=== PATIENT | female | born 1970 | race African-American/Black ===

== ENCOUNTER 2018-05-05 10:54 | Inpatient (IN) | payer MEDICARE, MEDICAID ==
[2018-05-05] MEDS ORDERED: Morphine 4 MG/ML VIAL ONE (11:53)
--- NOTE | 2018-05-05 13:13 | HP ---
PRIMARY CARE PHYSICIAN: Dr. Magalys Mcgovern. REASON FOR ADMISSION: Transfer from [facility] Emergency Room for small-bowel obstruction. HISTORY OF PRESENT ILLNESS: A 47-year-old female who has past medical history of ulcerative colitis required total colectomy in 2007. Patient has ileostomy in place. Patient was following chemist physical in [place], [place]. Patient is not on any specific treatment for ulcerative colitis anymore. Patient reports that for the last one week, she was experiencing burning and abdominal discomfort which was getting worse with food. Patient saw primary care physician 1 week ago and patient was given prescription for Nexium and Zofran that was not helping any symptoms and symptoms were getting worse. She was having more and more abdominal pain as well as nausea and she also had vomiting of clear liquid and food particle without any blood. She denies having bowel movement, but she has ileostomy and she was having ileostomy output daily basis which has not changed. She denies any abdominal distension. She denies any UTI symptoms. She denies any constipation, melena, hematochezia. She denies any fever or chills. She denies any hematemesis. This patient was evaluated at [facility] Emergency Room where she had routine blood test done which showed essentially normal CBC, BMP. Patient had a CT of the abdomen and pelvis which showed postoperative changes of total colectomy and ileostomy, large parastomal hernia containing several loops of ileum, high grade mechanical small-bowel obstruction with air fluid levels and dilated loops of ileum. Patient also has cholelithiasis without any cholecystitis. Patient had NG tube placed and subsequently, this patient was transferred to our hospital for further evaluation and treatment. From the emergency room, General Surgery was notified and they recommended to admit under General Medicine. We are admitting this patient for small-bowel obstruction. PAST MEDICAL HISTORY: Ulcerative colitis, gastroesophageal reflux disease, history of TIA in 2008, asthma. PAST SURGICAL HISTORY: Total colectomy, ileostomy, salpingo-oophorectomy, colon biopsy, cystoscopy, hysterectomy, tonsillectomy. PAST PSYCHIATRIC HISTORY: Reviewed and negative. SOCIAL HISTORY: Patient is . She lives at home with her . She drinks alcohol occasionally. She denies any smoking. She denies any other illicit drug abuse. FAMILY HISTORY: No strong family history of premature coronary artery disease, stroke or cancer. ALLERGIES: SULFA DRUGS and IODINE ADHESIVE. CURRENT HOME MEDICATIONS: Ventolin inhaler 2 puffs q.4 hourly p.r.n., Nexium 40 mg daily, Flonase nasal spray daily, Prilosec 20 mg daily, Zofran ODT q.8 hours p.r.n. EMERGENCY ROOM COURSE: Patient was given fentanyl 50 mcg at [place] [facility] [facility]. Patient is receiving IV fluid. Patient was given Ringer's lactate 1 liter and she was given total fentanyl 50 mcg 2 doses and Zofran 4 mg 1 dose. REVIEW OF SYSTEMS: The following complete review of systems was negative, unless otherwise mentioned in the HPI or below: Constitutional: Weight loss or gain, ability to conduct usual activities. Skin: Rash, itching. Eyes: Double vision, pain. ENT/Mouth: Nose bleeding, neck stiffness, pain, tenderness. Cardiovascular: Palpitations, dyspnea on exertion, orthopnea. Respiratory: Shortness of breath, wheezing, cough, hemoptysis, fever, or night sweats. Gastrointestinal: Poor appetite, abdominal pain, heartburn, nausea, vomiting, constipation, or diarrhea. Genitourinary: Urgency, frequency, dysuria, nocturia. Musculoskeletal: Pain, swelling. Neurologic/Psychiatric: Anxiety, depression. Allergy/Immunologic: Skin rash, bleeding tendency. Please see my HPI for pertinent positive and negative. All other review of system reviewed and negative except as mentioned in the HPI. PHYSICAL EXAMINATION: VITAL SIGNS: Currently, blood pressure 151/99, pulse 95, respiratory rate 18, temperature 98.4, saturation 100% on room air, weight 72.1 kilograms. GENERAL: Patient is currently alert, awake, mild distress due to abdominal pain. HEENT: Head, normocephalic and atraumatic. Eyes: Pupils are round, reactive to light. Extraocular muscle intact. ENT: Somewhat dry appearing mucous membrane, no oral lesions. An NG tube in place. NECK: Supple, no JVD, no thyromegaly, no carotid bruit. LUNGS: Clear to auscultation without any rhonchi or rales. CARDIAC: S1, S2 regular without any murmur. ABDOMEN: Patient does have diffuse tenderness, unable to hear any bowel sound. No distention. Ileostomy in the right lower quadrant. Surgical scar noted. No peritoneal sign, no suprapubic discomfort. BACK: Unremarkable, no CVA tenderness. EXTREMITIES: Upper extremity, passive movement of all joints are normal. Lower extremity, no edema. Good distal pulsation. SKIN: No skin rash. HEMATOLOGIC: No lymphadenopathy. PSYCHIATRIC: Normal affect. SIGNIFICANT LABORATORY DATA: 1. nuclear monitoring technician in the emergency room showing sinus rhythm. 2. Blood test done at [facility] Emergency Room showing urinalysis , leukocyte esterase trace, wbc's 329 and bacteria, moderate. 3. Lactic acid 1.2. 4. BMP: Sodium 142, potassium 4.8, chloride 111, carbon dioxide 21, BUN 11, creatinine 0.97, glucose 102, calcium 10.2. 5. LFT: AST 25, ALT 18, alkaline phosphatase is 100, protein 8.6, albumin 4.7 , lipase 33. 6. CBC: WBC 6.7, hemoglobin 12.6, platelet 231. 7. 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 ASSESSMENT AND PLAN: 1. Acute small-bowel obstruction. Patient's symptomatology is going on for the last one week, she has a radiologically proven high-grade mechanical small- bowel obstruction with air fluid level. Patient does have total colectomy and ileostomy. General Surgery was notified from emergency room. We will consult them. We will treat conservatively with NG tube low intermittent suction, n.p.o. We will control her pain with morphine 4 mg every 3 hourly. We will continue Protonix 40 mg IV b.i.d. We will monitor clinically and vitals. We will continue with IV fluid. Further decision will defer to general surgeon. 2. History of ileostomy. History of ulcerative colitis with total colectomy and ileostomy with parastromal hernia. General Surgery is consulted. At this point, the patient is not on any specific treatment for ulcerative colitis. If needed, we will consider Gastroenterology consultation. 3. Cholelithiasis without cholecystitis without any Cooney sign. Patient has normal LFT. Does not need any further treatment for cholelithiasis. 4. Gastroesophageal reflux disease. We will continue Protonix 40 mg IV b.i.d. 5. Asthma, currently well controlled. We will continue with Ventolin nebulization q.6 hours p.r.n. 6. Deep venous thrombosis prophylaxis. Lovenox 40 mg subcu daily. 7. Gastrointestinal prophylaxis. Protonix 40 mg IV b.i.d. 8. Code status: The patient is FULL CODE. Patient's is surrogate decision maker. Disposition plan based on clinical course. We are expecting patient's stay in hospital more than 2 midnights. Plan of care discussed with the patient and her . Asymptomatic urinary tract infection. We will send urine culture and tomorrow, we will repeat labs including CBC, CMP, lactate, magnesium and phosphorus. MTDD
[2018-05-05] MEDS ORDERED: Cepastat Lozenges 1 LOZ PO PRN (14:11)
[2018-05-05] MEDS ORDERED: Artificial Tears 18 DROP/0.9 ML EA EYE PRN (14:11)
[2018-05-05] MEDS ORDERED: Sodium Chloride 0.65% Nasal 44 ML BOT EA NARE PRN (14:11)
[2018-05-05] MEDS ORDERED: Eucerin (Mineral Oil/Petrolatum,White) 30 gm Jar TOP PRN (14:11)
[2018-05-05] MEDS ORDERED: Labetalol HCl 100 MG/20 ML VIAL SLOW IVP PRN (14:11)
[2018-05-05] MEDS ORDERED: Albuterol Sulfate 2.5 mg/3 ml Neb NEB PRN (14:11)
[2018-05-05] MEDS ORDERED: Acetaminophen 650 MG Suppository PR PRN (14:11)
[2018-05-05] MEDS ORDERED: hydrALAZINE 20 MG/ML VIAL SLOW IVP PRN (14:11)
[2018-05-05] MEDS: Morphine 4 MG/ML VIAL SLOW IVP PRN ×3 (14:24→22:18)
[2018-05-05] MEDS: D5 0.9% NS w/ 20 mEq KCl 1,000 ML IV SCH ×2 (14:25→19:45)
[2018-05-05] MEDS: Ondansetron PF 4 MG/2 ML Vial IVP PRN ×2 (16:47→22:19)
[2018-05-05] MEDS: Pantoprazole 40 MG VIAL IVP SCH (19:45)
--- NOTE | 2018-05-05 21:05 | CON ---
DATE OF CONSULTATION: 05/05/2018 REQUESTING PHYSICIAN: Dr. Kelly. HISTORY OF PRESENT ILLNESS: This is a 47-year-old woman who is status post total co lectomy in 2007 for chronic ulcerative colitis. The patient was seen at [facility] in [place], [place] and transferred to [facility] in [place], [place]. She presented complaining of 1 week history of recurrent nonbilious emesis associated with some crampy abdominal pain. Her symptoms seem to be exacerbated after eating. No specific foods implicated. Her ileostomy has been productive and no ch lawson in output or character. CT scan of the abdomen and pelvis was obtained in [place] and was repor tedly suggestive of acute small-bowel obstruction for which patient has been referred to the surgical service. At the time of my evaluation, patient denies any abdominal distention. She now rates her pain at 3/10. She has not had any emesis today. She empties ileostomy multiple times a day. She mederos s had no fevers or chills. She was recently treated for gastroesophageal reflux disease. She did mederos ve a history of bleeding peptic ulcerative disease many years ago. PAST MEDICAL HISTORY: Significant for gastroesophageal reflux disease, ulcerative colitis, asthma an d transient ischemic attacks. SURGICAL HISTORY: Pertinent for total colectomy with ileostomy, total abdominal hysterectomy with bi lateral salpingo-oophorectomy. She has also had a childhood tonsillectomy, cystoscopy and placement of inferior vena cava filter. SOCIAL HISTORY: Patient is and lives at home with her . Admits to occasional intake of ethanol in moderate amounts. She denies any cigarette smoking or any illicit drug abuse. PREHOSPITALIZATION MEDICATIONS: Includes Nexium 40 mg p.o. daily, Prilosec 20 mg p.o. daily, Ventoli n inhaler 2 puffs q.4 p.r.n., Flonase nasal spray, and Zofran p.r.n. ALLERGIES: SULFA DRUGS and IODINE. REVIEW OF SYSTEMS: A 10-point review of systems essentially unremarkable except for as stated in pas t medical history and chief complaint. PHYSICAL EXAMINATION: GENERAL: This reveals a 47-year-old normally developed woman who is otherwise coherent and interacti ve and appears stated age. The patient is alert and oriented x3. She appears to be in no acute dist ress at the time of my evaluation. VITAL SIGNS: Includes blood pressure 115/75, pulse is 74, respiratory rate is 18, temperature is 97. 9 degrees Fahrenheit and oxygen saturation is 96% on room air. HEENT: Reveals normocephalic and atraumatic. Pupils are equal, round, reactive to light and accommo dation. Extraocular muscles are intact bilaterally. No sclerae icterus is present. Oral mucosa is pink and moist. No lesions are noted. NECK: Supple. No palpable lymphadenopathy or thyromegaly present. HEART: Reveals regular rate and rhythm, no murmurs or gallops auscultated. LUNGS: Clear to auscultation bilaterally. Breathing is regular and unlabored. ABDOMEN: Soft and nondistended. She has a nasogastric tube in place which returns scant amount of n onbilious gastric effluent. She has a healed incisional scar. An ileostomy is present which is viab le and productive of liquid stool and some gas. There are palpable loops of small bowel subcutaneous ly around the ileostomy. No significant tenderness associated with the parastomal defect. Clearly, patient has no gross rebound tenderness present. Liver and spleen nonpalpable below costal margin. Bowel sounds in all four quadrants appear normoactive. EXTREMITIES: Reveals 2+ radial and pedal pulses bilaterally. No ankle edema is present. NEUROLOGIC: Examination reveals no focal deficits present. LABORATORY DATA AND IMAGING DATA: Laboratory studies from [place] includes CBC with 6,700 white bloo d cells, hemoglobin and hematocrit 12.6 and 38.1 respectively. Platelet count is 231,000. Metabolic profile reveals sodium 142, potassium is 4.1, chloride is 111, bicarbonate is 21, BUN 11, creatinine 0.97, glucose is 102, lactic acid is 1.2, AST and ALT normal at 25 and 18 respectively. Total bilir ubin is also normal at 0.5. Serum lipase normal at 33. Albumin is also normal at 4.7. I personally reviewed the accompanying CT scan of the abdomen and pelvis from [place]. Scan is without oral cont rast. It does reveal multiple distended loops of distal small bowel. There is parastomal hernia, wh ich contains small bowel. The small bowel; however, within the hernia contains fluid and air. Altho ugh the report suggests transition zone, I was not able to appreciate this on my evaluation given the re is no oral contrast with the study. Cholelithiasis is noted without any evidence of acute inflamm ation. IMPRESSION: 1. Abdominal pain with nausea and vomiting, likely secondary to gastric outlet obstruction and less likely secondary to acute small-bowel obstruction given the patient has normal ileostomy function. 2. Large parastomal hernia without any evidence of bowel obstruction. 3. Cholelithiasis. No clinical evidence of acute cholecystitis. 4. History of ulcerative colitis, status post total colectomy. PLAN: 1. Initiate upper GI studies with small bowel follow through. 2. Continue with nasogastric tube decompression. 3. There is no acute surgical indication for this patient at this time; however, if gastric outlet o bstruction is established by radiographic studies, we will give consideration to consulting Gastroent erology for upper endoscopy. Nevertheless, of small-bowel obstruction is established, we will then consider exploratory laparotomy to resolve the small-bowel obstruction, at which time we will also consider a cholecystectomy. Abov e findings and plan have been discussed with the patient and her at bedside. We will continu e with proton pump inhibitor given this patient's extensive history of previous bleeding of peptic ul cerative disease. She is at risk for recurrence and stricture. Thank you again, Dr. Kelly, for allowing me the opportunity to participate in the care of this [place] ent.
--- NOTE | 2018-05-05 21:28 | RAD ---
SMALL BOWEL SERIES: 05/05/18 HISTORY: 47-year-old female. History of small bowel obstruction. Plant And Maintenance Technician film, 15 minute, one hour, and four hour images are available for interpretation. Gastrografin contrast media was given per NG tube. The stomach is somewhat dilated. At the one hour time interval, essentially no contrast had passed out of the stomach. At the 4 hour study, only a small amount of v ofelia dilute contrast media has passed into nondilated small bowel. There is some contrast noted in the right upper collecting system and also in the bladder. IVC filter is in place. IMPRESSION: After four hours there is still dense contrast within the stomach with only a very tiny amount of dil lower elwha contrast in nondilated small bowel. There appears to be some contrast within the right upper shell ecting system and bladder. A followup KUB in the morning is recommended. POS: [facility]
[2018-05-06] MEDS: Morphine 4 MG/ML VIAL SLOW IVP PRN ×6 (01:12→22:47)
[2018-05-06] MEDS: Ondansetron PF 4 MG/2 ML Vial IVP PRN ×2 (03:53→20:06)
[2018-05-06 05:22] LABS: Lactic Acid 0.9 mmol/L (0.5-2.2)
[2018-05-06 05:27] LABS: ALT (SGPT) 10 U/L (8-55); AST (SGOT) 17 U/L (5-34); Albumin 3.8 g/dL (3.5-5.0); Alkaline Phosphatase 81 U/L (40-150); Anion Gap 10 mmol/L (10-20); BUN (Urea Nitrogen) 5 mg/dL (7.0-18.7); Bilirubin, Total 0.7 mg/dL (0.2-1.2); CRP (Inflammatory) 0.73 mg/dL (= or < 0.5); Calc. Creatinine Clearance 93 mL/min (70-130); Carbon Dioxide 21 mmol/L (22-29); Chloride 112 mmol/L (98-107); Estimated GFR-MDRD 87; Globulin 3.2 g/dL (2.4-3.5); Glucose 135 mg/dL (70-105); Phosphorus 3.8 mg/dL (2.3-4.7); Potassium 4.1 mmol/L (3.5-5.1); Sodium 139 mmol/L (136-145)
[2018-05-06 06:05] LABS: #Lymphocytes 1.3 thou/uL (1.20-3.40); #Monocytes 0.4 thou/uL (0.11-0.59); %Basophils 0.7 % (0.0-1.0); %Eosinophils 0.2 % (0.0-10.0); %Lymphocytes 22.5 % (21.0-51.0); %Monocytes 7.3 % (0.0-10.0); %Neutrophils 69.4 % (42.0-75.0); Hemoglobin 11.9 g/dL (12.0-16.0); MDiff Complete? YES; Mean Corpuscular HGB CONC 32.8 g/dL (32.0-36.0); Mean Corpuscular Hemoglobin 30.4 pg (27.0-31.0); Mean Corpuscular Volume 92.6 fL (78.0-98.0); Mean Platelet Volume 8.4 fL (7.4-10.4); Platelet Count 230 thou/uL (130-400); RBC Distribution Width 12.1 % (11.5-14.5); RBC Morphology Normal; Red Blood Cell (RBC) Count 3.93 mill/uL (4.20-5.40); White Blood Cell (WBC) Count 5.8 thou/uL (4.8-10.8)
[2018-05-06] MEDS: D5 0.9% NS w/ 20 mEq KCl 1,000 ML IV SCH ×3 (06:09→23:22)
[2018-05-06] MEDS: Pantoprazole 40 MG VIAL IVP SCH ×2 (07:51→20:06)
[2018-05-06] MEDS: Enoxaparin Sodium 40 MG/0.4 ML SYRINGE SC SCH (07:51)
--- NOTE | 2018-05-06 09:50 | RAD ---
SUPINE ABDOMEN: Date: 05/06/18 PROVIDED CLINICAL HISTORY: Small bowel obstruction. FINDINGS: Comparison of small bowel follow-through dated 05/05/18. No contrast material is present within the regional bowel. The bowel gas pattern is nonspecific. IVC filter overlies the lumbar spine. Enteric catheter overlies the left mid abdomen. Calcifications over lying the right renal shadow may reflect material within bowel or nephrolithiasis. The supine nature of the study is not sensitive for detection of pneumoperitoneum. IMPRESSION: Nonspecific bowel gas pattern. POS: [facility]
[2018-05-06] MEDS ORDERED: Lidocaine 1% PF 5 ML VIAL ONE (10:01)
[2018-05-06] MEDS ORDERED: PHENYLEPHRINE-NS 100 MCG/ML 10 ML SYRINGE ONE (10:01)
[2018-05-06] MEDS ORDERED: PROPOFOL 200 MG/20 ML VIAL ONE (10:01)
[2018-05-06] MEDS ORDERED: Ondansetron PF 4 MG/2 ML Vial ONE (10:01)
[2018-05-06] MEDS ORDERED: Succinylcholine Chloride 20 MG/ML 10 ml SYRINGE FS ONE (10:01)
--- NOTE | 2018-05-06 10:21 | PDOC.PN ---
- Subjective Encounter Start Date: 05/06/18 Encounter Start Time: 07:50 -: old records requested/rev Patient seen and examined. last night she had vomiting, has some vague abdominal pain - Objective Resuscitation Status: Resuscitation Status FULL:Full Resuscitation MAR Reviewed: Yes Vital Signs & Weight: Vital Signs (12 hours) Temp Pulse Resp BP Pulse Ox 05/06/18 07:09 98.1 F 69 16 134/82 96 05/06/18 04:23 97 05/06/18 04:22 98.4 F 68 18 146/90 H 96 05/05/18 23:59 98.1 F 64 18 151/92 H 97 Weight Weight 158 lb 11.725 oz I&O: 05/05/18 05/06/18 05/07/18 06:59 06:59 06:59 Intake Total 2000 Output Total 1730 Balance 270 Result Diagrams: 05/06/18 04:40 05/06/18 04:40 Radiology Reviewed by me: Yes (small bowl xray and xray abdomen reviewed) Phys Exam - Physical Examination Constitutional: NAD HEENT: PERRLA, moist MMs, sclera anicteric NG tube with LIS Neck: no JVD, supple Respiratory: no wheezing, no rales, no rhonchi Cardiovascular: RRR, no significant murmur, no rub Gastrointestinal: soft, no distention Ileostomy+ Musculoskeletal: no edema, pulses present Neurological: non-focal, normal sensation, moves all 4 limbs Psychiatric: normal affect, A&O x 3 Skin: no rash, normal turgor Dx/Plan (1) SBO (small bowel obstruction) Code(s): K56.609 - UNSP INTESTNL OBST, UNSP TO PARTIAL VERSUS COMPLETE OBST Status: Acute (2) Asymptomatic bacteriuria Code(s): R82.71 - BACTERIURIA Status: Acute (3) Anemia, normocytic normochromic Code(s): D64.9 - ANEMIA, UNSPECIFIED Status: Chronic (4) Asthma Code(s): J45.909 - UNSPECIFIED ASTHMA, UNCOMPLICATED Status: Chronic (5) H/O total colectomy Code(s): Z90.49 - ACQUIRED ABSENCE OF OTHER SPECIFIED PARTS OF DIGESTIVE TRACT Status: Chronic (6) H/O ulcerative colitis Code(s): Z87.19 - PERSONAL HISTORY OF OTHER DISEASES OF THE DIGESTIVE SYSTEM Status: Chronic (7) Ileostomy status Code(s): Z93.2 - ILEOSTOMY STATUS Status: Chronic - Plan cont current plan of care, plan discussed w/ family * General surgery recommendation noted * GI consulted * continue NG tube with LIS * discussed with * continue IVF * medication reviewed as below * symptomatic treatment. Review of Systems - Review of Systems Eyes: negative: Pain, Vision Change, Conjunctivae Inflammation, Eyelid Inflammation, Redness, Other ENT: negative: Ear Pain, Ear Discharge, Nose Pain, Nose Discharge, Nose Congestion, Mouth Pain, Mouth Swelling, Throat Pain, Throat Swelling, Other Respiratory: negative: Cough, Dry, Shortness of Breath, Hemoptysis, SOB with Excertion, Pleuritic Pain, Sputum, Wheezing Cardiovascular: negative: chest pain, palpitations, orthopnea, paroxysmal nocturnal dyspnea, edema, light headedness, other Gastrointestinal: Nausea, Vomiting, Abdominal Pain. negative: Diarrhea, Constipation, Melena, Hematochezia, Other Genitourinary: negative: Dysuria, Frequency, Incontinence, Hematuria, Retention , Other Musculoskeletal: negative: Neck Pain, Shoulder Pain, Arm Pain, Back Pain, Hand Pain, Leg Pain, Foot Pain, Other Skin: negative: Rash, Lesions, Luis, Bruising, Other - Medications/Allergies Allergies/Adverse Reactions: Allergies Allergy/AdvReac Type Severity Reaction Status Date / Time adhesive tape Allergy Verified 05/05/18 15:07 iodine Allergy Verified 05/05/18 15:07 Sulfa (Sulfonamide Allergy Verified 05/05/18 15:07 Antibiotics) Medications: Current Medications Acetaminophen (Tylenol) 650 mg MO Q4H PRN PRN Reason: Headache/Fever/Mild Pain (1-3) Albuterol Sulfate (Ventolin) 2.5 mg NEB [id number] PRN PRN Reason: Wheezing Artificial Tears (Tears Naturale) 2 drop EA EYE PRN PRN PRN Reason: Dry Eyes Enoxaparin Sodium (Lovenox) 40 mg SC 0900 [facility] Last Admin: 05/06/18 07:51 Dose: 40 mg Hydralazine HCl (Apresoline) 10 mg SLOW IVP Q4H PRN PRN Reason: SBP Greater Than 170 Potassium Chloride/Dextrose/Sod Cl (D5 0.9% Ns W/ 20 Meq Kcl) 1,000 mls @ 125 mls/hr IV .Q8H ROSMERY Last Admin: 05/06/18 06:09 Dose: 1,000 mls Labetalol HCl (Normodyne) 20 mg SLOW IVP Q4H PRN PRN Reason: SBP Greater Than 170 Mineral Oil/White Petrolatum (Eucerin Cream) 0 gm TOP BIDPRN PRN PRN Reason: Dry Skin Mometasone Furoate/Formoterol Fumar (Dulera 200 Mcg/5 Mcg Inhaler) 2 puff INH BID-RT [facility] Morphine Sulfate (Morphine) 4 mg SLOW IVP Q3H PRN PRN Reason: Pain Last Admin: 05/06/18 07:51 Dose: 4 mg Ondansetron HCl (Zofran) 4 mg IVP Q6H PRN PRN Reason: Nausea/Vomiting Last Admin: 05/06/18 03:53 Dose: 4 mg Pantoprazole Sodium (Protonix) 40 mg IVP Q12HR [facility] Last Admin: 05/06/18 07:51 Dose: 40 mg Sodium Chloride ([place] Nasal [place] 0.65%) 0 ml EA NARE QIDPRN PRN PRN Reason: Nasal Congestion Throat Lozenges (Cepastat Lozenges) 1 rambo PO Q2H PRN PRN Reason: Sore Throat
[2018-05-06] MEDS ORDERED: cefTRIAXone\\ROCEPHIN 1 GM in Sodium Chloride 0.9% 100 ML IVPB SCH (14:00)
--- NOTE | 2018-05-06 14:00 | PRG ---
DATE OF SERVICE: 05/06/2018 SUBJECTIVE: Idalia Bro is a 47-year-old female that the surgical team is seeing in consultation f or a possible small-bowel obstruction. The patient has a history of a colectomy in 2007 with a histo ry of chronic ulcerative colitis. She underwent a small bowel follow through yesterday evening. The re were no acute overnight events. Upon our evaluation this morning, the patient states that her abd ominal pain has been well controlled. She denies any nausea or vomiting. OBJECTIVE: VITAL SIGNS: Temperature 98.1, pulse 69, respirations 16, O2 sat 96% on room air, blood pressure 134 /82. GENERAL: Well-developed female in no acute distress, resting in bed. NG tube is in place, but clamp ed. PULMONARY: Normal work of breathing. Symmetric rise. CARDIOVASCULAR: Regular rate and rhythm. GASTROINTESTINAL: Abdomen is soft, nontender, nondistended. Colostomy in place. NEUROLOGIC: No focal deficit is noted. LABORATORY FINDINGS: WBC 5.8, hemoglobin 11.9, hematocrit 36.4, platelet count 230. Sodium 139, pot assium 4.1, chloride 112, carbon dioxide 21, BUN 5, creatinine 0.5, glucose 135. RADIOGRAPHIC FINDINGS: Small bowel follow through on 05/05/2018 was read by Radiology after 4 hours with only minimal contrast moving from the stomach to the nondilated small bowel. KUB this morning w as read as demonstrating a nonspecific bowel gas pattern. ASSESSMENT AND PLAN: 1. Abdominal pain, nausea, and vomiting. 2. Possible gastric outlet obstruction. PLAN: Dr. Bah has discussed this case with Dr. Sellers from Gastroenterology. Findings from small b owel follow through were consistent with likely gastric outlet obstruction. Patient's NG tube should be placed back on low intermittent suction to prevent further nausea or vomiting. Continue n.p.o. s tatus. Plan of care was discussed with the patient and family at bedside and all questions were answered at the time of this dictation. Patient was seen and evaluated with Dr. Bah.
--- NOTE | 2018-05-06 15:16 | CON ---
DATE OF CONSULTATION: 05/06/2018 CHIEF COMPLAINT: Abdominal pain and nausea and vomiting. HISTORY OF PRESENT ILLNESS: Ms. Bro is a 47-year-old woman who developed epigastric burning tristen n about a week ago. Yesterday, she noted swelling around her colostomy site and she went to the [facility] room by ambulance to further evaluate that. She had a CT scan without contrast performed in [facility] ER at [facility] in [place] and then she was transferred here for further care. She then [facility] having nausea and vomiting. She was evaluated by Dr. Bah and a contrast upper GI study was ord ered; however, the stomach did not empty the Gastrografin consistent with gastric outlet obstruction. She has had some bloody streaks with her emesis. She has had continued output from her colostomy, which she reports is at her baseline functioning. She was diagnosed with chronic ulcerative colitis back in 2003. Her disease was refractory to steroi ds and Imuran. Remicade therapy was considered; however, due to the severity of her disease, she ult imately underwent colectomy in 2007. She does report that at some point in 2007, she had a gastric u lcer. She did have ileoscopy and proctoscopy by Dr. 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 She has not returned for followup since then. 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 King in [place] and just had that packed. She has not been seen by our practice since 2010. PAST MEDICAL HISTORY: Ulcerative colitis, gastroesophageal reflux disease, asthma, TIA. Review of [facility] past records indicate HIV infection; however, she did not mention this on extensive discussion of her past medical history and I will ask her about that again. PAST SURGICAL HISTORY: Subtotal colectomy with ileostomy, total hysterectomy, tubal ligation, tonsil lectomy. FAMILY HISTORY: She reports that her sister had ulcerative colitis and of colon cancer related to the ulcerative colitis last year. SOCIAL HISTORY: No alcohol, tobacco or drugs. ALLERGIES: SULFA, IODINE CONTRAST, ORANGES. MEDICATIONS: Prior to admission, Ventolin inhaler, Flonase nasal spray. Over the last week, she has taken either Nexium or Prilosec and Zofran. REVIEW OF SYSTEMS: She has had some acid reflux symptoms around once every couple of weeks and occas ionally, she takes Tums for that. PHYSICAL EXAMINATION: VITAL SIGNS: Temperature 98.0, pulse 64, blood pressure 125/81. GENERAL: She is in no acute distress. She is alert and oriented x3. HEENT: Eyes have no scleral icterus. Oropharynx is clear, without lesions. [facility] NECK: She has no cervical or supraclavicular lymphadenopathy. LUNGS: Clear to auscultation bilaterally. HEART: Regular rate and rhythm without murmur. ABDOMEN: Soft, nontender, nondistended. Bowel sounds are present. She has ileostomy in the right a bdomen. EXTREMITIES: No lower extremity edema. NEUROLOGIC: Cranial nerves are grossly intact. LABORATORY DATA: White blood cell count 5.8, hemoglobin 11.9, platelets 230. Creatinine 0.85, bilir ubin 0.7, AST 17, ALT 10, alkaline phosphatase 81. C-reactive protein 0.73, albumin 3.8. IMPRESSION: 1. Possible gastric outlet obstruction. She does have some blood in the NG tube, which could be mec hanical from the NG tube. Rule out peptic ulcer causing gastric outlet obstruction. 2. History of chronic ulcerative colitis. She does have a rectal stump left following subtotal clementina ctomy. She does need to undergo surveillance endoscopy for that area for cancer surveillance. Her s ister of colon cancer related to ulcerative colitis. She has had some occasional discharge from the rectum, but no bleeding. 3. Parastomal hernia. 4. History of human immunodeficiency virus. She states that she was diagnosed with human immunodefi ciency virus previously, but follow up labs by Dr. Smith in [place] showed that she no longer had it or was not infected with that. RECOMMENDATIONS: 1. Plan upper endoscopy today to rule out a gastric ulcer or gastric outlet obstruction. 2. Plan ileoscopy and proctoscopy as well with biopsies of the rectal mucosa. 3. Recheck HIV status.
[2018-05-06] MEDS ORDERED: Fentanyl 100 MCG/2 ML VIAL ONE (15:25)
[2018-05-06] MEDS ORDERED: Promethazine HCl 25 MG/ML VIAL IM PRN (16:13)
[2018-05-06] MEDS ORDERED: Promethazine HCl 25 MG/ML VIAL SLOW IVP PRN (16:13)
[2018-05-06] MEDS ORDERED: Ondansetron HCl/PF 4 MG/2 ML Vial IVP PRN (16:13)
--- NOTE | 2018-05-06 16:58 | OP ---
DATE OF PROCEDURE: 05/06/2018 PROCEDURES: Esophagogastroduodenoscopy and push enteroscopy with biopsy and ileoscopy and proctoscop y with biopsy. PREOPERATIVE DIAGNOSES: Nausea and vomiting and epigastric pain and suspected gastric outlet obstruc tion by imaging. Also chronic ulcerative colitis, status post subtotal colectomy. PROCEDURE IN DETAIL: Informed consent was obtained. The endoscope was advanced easily to the second portion of the duodenum and retroflexion was performed in the stomach. The esophagus was normal. T he GE junction was normal. The stomach mucosa overall appeared normal except for areas of suction tr auma in the proximal body. Biopsies were obtained to rule out other causes of gastritis and rule out H. pylori. The pylorus was normal. The first and second portions of the duodenum were normal. Duo denal biopsies were taken to rule out celiac disease. The scope was withdrawn and a colonoscope was then used to advance all the way down to the proximal jejunum. The mucosa of the proximal jejunum an d third and fourth portions of the duodenum was normal. The air was suctioned from the stomach. The endoscope was then advanced at least 30 cm through the ileostomy into the terminal ileum. The mucos a of the ileum was normal. The patient was turned around. Rectal exam reveals a short rectal stump. The endoscope was advanced to the rectum. The rectal mucosa was inflamed and erythematous, slightl y nodular and friable. Biopsies were obtained to rule out dysplasia. IMPRESSION: 1. Nasogastric suction trauma in the proximal body of the stomach. Biopsies obtained. 2. Otherwise normal push enteroscopy to the proximal jejunum. Biopsies of the duodenum were obtaine d. 3. Normal ileal colonoscopy through the ileostomy. 4. Diffuse friable erythematous irregular mucosa in the rectal stump. Biopsies obtained. RECOMMENDATIONS: 1. Await histopathology. 2. If the biopsies showed no dysplasia, then [place] suppositories could be considered for the chroni c proctitis. 3. Clear liquid diet. 4. Await HIV labs. It does appear that at least in 2016, at that time she was under the name of Thania Kumar, she had a positive viral load. 5. Timing of surveillance proctoscopy based on histopathology.
[2018-05-06 19:33] LABS: HIV 1/2 INDEX 464.36 S/CO (<1.00)
[2018-05-06 19:35] LABS: HIV (1/2) Antibody/Antigen Reflxed Confirmation (NonReactive)
[2018-05-06] MEDS: Mometasone/Formoterol 120 PUFF INHALER INH SCH (19:47)
[2018-05-07] MEDS: D5 0.9% NS w/ 20 mEq KCl 1,000 ML IV SCH (06:37)
[2018-05-07] MEDS: Mometasone/Formoterol 120 PUFF INHALER INH SCH ×2 (07:15→19:09)
[2018-05-07] MEDS: Enoxaparin Sodium 40 MG/0.4 ML SYRINGE SC SCH (08:26)
[2018-05-07] MEDS: Pantoprazole 40 MG VIAL IVP SCH (08:27)
[2018-05-07] MEDS: Morphine 4 MG/ML VIAL SLOW IVP PRN (08:27)
[2018-05-07] MEDS ORDERED: D5 0.9% NS w/ 20 mEq KCl 1,000 ML IV SCH (09:30)
--- NOTE | 2018-05-07 10:02 | PDOC.PN ---
- Subjective Encounter Start Date: 05/07/18 Encounter Start Time: 08:40 Patient seen and examined. No new complaints. No overnight events she has allergic reaction with rocephin and c/o lip swelling - Objective Resuscitation Status: Resuscitation Status FULL:Full Resuscitation MAR Reviewed: Yes Vital Signs & Weight: Vital Signs (12 hours) Temp Pulse Resp BP Pulse Ox 05/07/18 08:24 98.5 F 78 15 127/79 98 05/07/18 07:15 79 16 98 05/07/18 04:00 98.1 F 63 16 134/83 96 05/06/18 23:53 98.5 F 75 16 117/77 95 Weight Weight 158 lb 11.725 oz I&O: 05/06/18 05/07/18 05/08/18 06:59 06:59 06:59 Intake Total 1999 1810 Output Total 1730 150 Balance 270 1660 Result Diagrams: 05/06/18 04:40 05/06/18 04:40 Phys Exam - Physical Examination Constitutional: NAD HEENT: PERRLA, moist MMs, sclera anicteric Neck: no JVD, supple Respiratory: no wheezing, no rales, no rhonchi Cardiovascular: RRR, no significant murmur, no rub Gastrointestinal: soft, non-tender, no distention, positive bowel sounds iliostomy+ Musculoskeletal: no edema, pulses present Neurological: non-focal, normal sensation, moves all 4 limbs Lymphatic: no nodes Psychiatric: normal affect, A&O x 3 Skin: no rash, normal turgor Dx/Plan (1) SBO (small bowel obstruction) Code(s): K56.609 - UNSP INTESTNL OBST, UNSP TO PARTIAL VERSUS COMPLETE OBST Status: Acute (2) Asymptomatic bacteriuria Code(s): R82.71 - BACTERIURIA Status: Acute (3) Anemia, normocytic normochromic Code(s): D64.9 - ANEMIA, UNSPECIFIED Status: Chronic (4) Asthma Code(s): J45.909 - UNSPECIFIED ASTHMA, UNCOMPLICATED Status: Chronic (5) H/O total colectomy Code(s): Z90.49 - ACQUIRED ABSENCE OF OTHER SPECIFIED PARTS OF DIGESTIVE TRACT Status: Chronic (6) H/O ulcerative colitis Code(s): Z87.19 - PERSONAL HISTORY OF OTHER DISEASES OF THE DIGESTIVE SYSTEM Status: Chronic (7) Ileostomy status Code(s): Z93.2 - ILEOSTOMY STATUS Status: Chronic (8) HIV (human immunodeficiency virus infection) Status: Acute - Plan cont current plan of care, plan discussed w/ family, continue antibiotics * DC Rocephin and start macrobid * medication reviewed as below * symptomatic treatment * diet advancement as per GI * ambulate as tolerated * she has positive HIV but as per her previous record she was positive in past, though pt does not accept. Review of Systems - Review of Systems ENT: negative: Ear Pain, Ear Discharge, Nose Pain, Nose Discharge, Nose Congestion, Mouth Pain, Mouth Swelling, Throat Pain, Throat Swelling, Other Respiratory: negative: Cough, Dry, Shortness of Breath, Hemoptysis, SOB with Excertion, Pleuritic Pain, Sputum, Wheezing Cardiovascular: negative: chest pain, palpitations, orthopnea, paroxysmal nocturnal dyspnea, edema, light headedness, other Gastrointestinal: negative: Nausea, Vomiting, Abdominal Pain, Diarrhea, Constipation, Melena, Hematochezia, Other Genitourinary: negative: Dysuria, Frequency, Incontinence, Hematuria, Retention , Other Musculoskeletal: negative: Neck Pain, Shoulder Pain, Arm Pain, Back Pain, Hand Pain, Leg Pain, Foot Pain, Other - Medications/Allergies Allergies/Adverse Reactions: Allergies Allergy/AdvReac Type Severity Reaction Status Date / Time adhesive tape Allergy Verified 05/05/18 15:07 iodine Allergy Verified 05/05/18 15:07 Sulfa (Sulfonamide Allergy Verified 05/05/18 15:07 Antibiotics) Medications: Current Medications Acetaminophen (Tylenol) 650 mg [place] Q4H PRN PRN Reason: Headache/Fever/Mild Pain (1-3) Albuterol Sulfate (Ventolin) 2.5 mg NEB [id number] PRN PRN Reason: Wheezing Artificial Tears (Tears Naturale) 2 drop EA EYE PRN PRN PRN Reason: Dry Eyes Enoxaparin Sodium (Lovenox) 40 mg SC 0900 ROSMERY Last Admin: 05/07/18 08:26 Dose: 40 mg Hydralazine HCl (Apresoline) 10 mg SLOW IVP Q4H PRN PRN Reason: SBP Greater Than 170 Potassium Chloride/Dextrose/Sod Cl (D5 0.9% Ns W/ 20 Meq Kcl) 1,000 mls @ 50 mls/hr IV .Q20H ROSMERY Labetalol HCl (Normodyne) 20 mg SLOW IVP Q4H PRN PRN Reason: SBP Greater Than 170 Mineral Oil/White Petrolatum (Eucerin Cream) 0 gm TOP BIDPRN PRN PRN Reason: Dry Skin Last Admin: 05/06/18 12:09 Dose: 1 applic Mometasone Furoate/Formoterol Fumar (Dulera 200 Mcg/5 Mcg Inhaler) 2 puff INH BID-RT ROSMERY Last Admin: 05/07/18 07:15 Dose: 2 puff Morphine Sulfate (Morphine) 4 mg SLOW IVP Q3H PRN PRN Reason: Pain Last Admin: 05/07/18 08:27 Dose: 4 mg Ondansetron HCl (Zofran) 4 mg IVP Q6H PRN PRN Reason: Nausea/Vomiting Last Admin: 05/06/18 20:06 Dose: 4 mg Pantoprazole Sodium (Protonix) 40 mg IVP Q12HR ROSMERY Last Admin: 05/07/18 08:27 Dose: 40 mg Sodium Chloride ([place] Nasal [place] 0.65%) 0 ml EA NARE QIDPRN PRN PRN Reason: Nasal Congestion Throat Lozenges (Cepastat Lozenges) 1 rambo PO Q2H PRN PRN Reason: Sore Throat
[2018-05-07] MEDS: Nitrofurantoin Monohyd/M-Cryst 100 MG CAP PO SCH ×2 (13:02→20:01)
--- NOTE | 2018-05-07 14:13 | PRG ---
DATE OF SERVICE: 05/07/2018 SUBJECTIVE: Ms. Bro is tolerating a clear liquid diet well so far. She has no nausea or vomiti ng. She has no abdominal pain. OBJECTIVE: VITAL SIGNS: Temperature 98.5, pulse 72, blood pressure 143/80. GENERAL: She is in no acute distress. She is alert and oriented. LUNGS: Clear to auscultation bilaterally. HEART: Regular rate and rhythm without murmur. ABDOMEN: Soft, nontender, nondistended. Bowel sounds are present. EXTREMITIES: No lower extremity edema. IMPRESSION: 1. Epigastric pain and nausea and vomiting on presentation. Gastrografin study failed to show empty ing of the stomach after 4 hours initially. Followup enteroscopy to the jejunum and ileoscopy throug h the ileostomy showed normal mucosa overall. Biopsies were obtained from the stomach and duodenum. No explanation for her symptoms is identify by this procedure, but her symptoms are resolved now. S he could have had an intermittent obstruction related to scar tissue from prior surgeries. She did r eport swelling around her stoma at the time of the initial symptoms and she could have had some type of hernia related to that, then although she really did not present with vomiting. She did not vomit until she got to [place]. If she has recurrent epigastric pain in the future, then consideration of gallbladder as an etiology can be given. 2. History of ulcerative colitis, status post subtotal colectomy. Proctoscopy of the rectal stump y esterday shows severely inflamed mucosa in the rectum. Multiple biopsies were obtained to evaluate f or dysplasia. 3. Human immunodeficiency virus infection. Status of this is not known. RECOMMENDATIONS: 1. Await histopathology. She will need to follow up with Dr. Carver in the office and if these biop sies show no dysplasia, treatment with 5-ASA suppositories could be considered and then she will need to undergo routine surveillance of the rectal stump yearly. 2. If she tolerates her diet, then she should be able to advance this further and potentially discha rge home tomorrow.
[2018-05-07] MEDS ORDERED: diphenhydrAMINE 50 MG/ML VIAL IVP PRN (14:44)
[2018-05-07] MEDS ORDERED: Albuterol Sulfate 2.5 mg/3 ml Neb NEB PRN (14:49)
[2018-05-07] MEDS ORDERED: Ondansetron ODT 8 MG TAB PO PRN (14:49)
[2018-05-07] MEDS: diphenhydrAMINE 25 MG CAP PO PRN ×2 (15:09→20:09)
--- NOTE | 2018-05-07 15:48 | PRG ---
DATE OF SERVICE: 05/07/2018 VISIT TRAUMA SERVICE SUBJECTIVE: A 47-year-old female presenting with abdominal pain. Small bowel follow through resulte d in no drainage from the proximal small bowel. Patient has an ileostomy for the past 10 years due t o total colectomy for ulcerative colitis. She has ileostomy and Brisa's pouch. The patient after her small bowel follow through did not progress and had an NG tube placed and had 975 mL drainage. She began passing flatus and stool out of her ileostomy bag. Patient states she emptied a full bag t his morning. Dr. Jama Sellers has done an upper endoscopy and passed the flexible scope into the pr oximal small bowel indicating an absence of gastric outlet obstruction. Currently, the patient feels better, she is not having nausea and vomiting. She is tolerating her diet. She reports past histor y of possible cholelithiasis, but denies any biliary symptoms. At this point, would not order an ult rasound as there is no indication for cholecystectomy. PHYSICAL EXAMINATION: LUNGS: Clear to auscultation. CARDIAC: Regular rate and rhythm without murmur or gallop. ABDOMEN: Soft, nontender. Ileostomy bag with stool and flatus. ASSESSMENT AND PLAN: Abdominal pain seems to be resolved. We will advance her to regular diet and s ee how she tolerates her diet and resume her home medications.
[2018-05-07] MEDS ORDERED: Non-Formulary Item 1 EACH (Budesonide-Formoterol [Symbicort 80-4.5] 1 PUFF) INH SCH (21:00)
[2018-05-07] MEDS ORDERED: Famotidine/PF 20 mg/2ml Vial SLOW IVP SCH (21:00)
[2018-05-08] MEDS: traMADol HCl 50 MG TAB PO PRN (03:48)
[2018-05-08] MEDS: Mometasone/Formoterol 120 PUFF INHALER INH SCH ×2 (08:00→18:33)
[2018-05-08] MEDS: Enoxaparin Sodium 40 MG/0.4 ML SYRINGE SC SCH (08:36)
[2018-05-08] MEDS: Nitrofurantoin Monohyd/M-Cryst 100 MG CAP PO SCH ×2 (08:37→21:15)
--- NOTE | 2018-05-08 09:53 | PDOC.PN ---
- Subjective Encounter Start Date: 05/08/18 Encounter Start Time: 08:00 Patient seen and examined. c/o epigastric pain. No overnight events - Objective Resuscitation Status: Resuscitation Status FULL:Full Resuscitation MAR Reviewed: Yes Vital Signs & Weight: Vital Signs (12 hours) Temp Pulse Resp BP Pulse Ox 05/08/18 07:19 97.9 F 67 16 151/85 H 98 05/08/18 04:00 98.1 F 81 16 134/75 100 05/08/18 01:07 97.6 F 65 16 147/83 H 100 Weight Weight 158 lb 11.725 oz I&O: 05/07/18 05/08/18 05/09/18 06:59 06:59 06:59 Intake Total 1810 1850 Output Total 150 100 Balance 1660 1750 Result Diagrams: 05/06/18 04:40 05/06/18 04:40 Phys Exam - Physical Examination Constitutional: NAD HEENT: PERRLA, moist MMs, sclera anicteric Neck: no JVD, supple Respiratory: no wheezing, no rales, no rhonchi Cardiovascular: RRR, no significant murmur, no rub Gastrointestinal: soft, no distention, positive bowel sounds iliostomy+ Musculoskeletal: no edema, pulses present Neurological: non-focal, normal sensation, moves all 4 limbs Psychiatric: normal affect, A&O x 3 Skin: no rash, normal turgor Dx/Plan (1) SBO (small bowel obstruction) Code(s): K56.609 - UNSP INTESTNL OBST, UNSP TO PARTIAL VERSUS COMPLETE OBST Status: Resolved (2) Asymptomatic bacteriuria Code(s): R82.71 - BACTERIURIA Status: Acute (3) Anemia, normocytic normochromic Code(s): D64.9 - ANEMIA, UNSPECIFIED Status: Chronic (4) Asthma Code(s): J45.909 - UNSPECIFIED ASTHMA, UNCOMPLICATED Status: Chronic (5) H/O total colectomy Code(s): Z90.49 - ACQUIRED ABSENCE OF OTHER SPECIFIED PARTS OF DIGESTIVE TRACT Status: Chronic (6) H/O ulcerative colitis Code(s): Z87.19 - PERSONAL HISTORY OF OTHER DISEASES OF THE DIGESTIVE SYSTEM Status: Chronic (7) Ileostomy status Code(s): Z93.2 - ILEOSTOMY STATUS Status: Chronic (8) Proctitis Code(s): K62.89 - OTHER SPECIFIED DISEASES OF ANUS AND RECTUM Status: Acute (9) HIV (human immunodeficiency virus infection) Status: Acute - Plan cont current plan of care, continue antibiotics * continue macrobid * today will get US GB * diet as tolerated * advised to follow up with dr morillo for HIV and Dr marquez for proctitis * follow on pathology report. Review of Systems - Review of Systems ENT: negative: Ear Pain, Ear Discharge, Nose Pain, Nose Discharge, Nose Congestion, Mouth Pain, Mouth Swelling, Throat Pain, Throat Swelling, Other Respiratory: negative: Cough, Dry, Shortness of Breath, Hemoptysis, SOB with Excertion, Pleuritic Pain, Sputum, Wheezing Cardiovascular: negative: chest pain, palpitations, orthopnea, paroxysmal nocturnal dyspnea, edema, light headedness, other Gastrointestinal: Abdominal Pain. negative: Nausea, Vomiting, Diarrhea, Constipation, Melena, Hematochezia, Other Genitourinary: negative: Dysuria, Frequency, Incontinence, Hematuria, Retention , Other Musculoskeletal: negative: Neck Pain, Shoulder Pain, Arm Pain, Back Pain, Hand Pain, Leg Pain, Foot Pain, Other - Medications/Allergies Allergies/Adverse Reactions: Allergies Allergy/AdvReac Type Severity Reaction Status Date / Time adhesive tape Allergy Verified 05/05/18 15:07 iodine Allergy Verified 05/05/18 15:07 Sulfa (Sulfonamide Allergy Verified 05/05/18 15:07 Antibiotics) Medications: Current Medications Acetaminophen (Tylenol) 650 mg [place] Q4H PRN PRN Reason: Headache/Fever/Mild Pain (1-3) Albuterol Sulfate (Ventolin) 2.5 mg NEB [id number] PRN PRN Reason: Wheezing Albuterol Sulfate (Ventolin) 7.5 mg NEB Q6H PRN PRN Reason: SOB &/or Wheezing Artificial Tears (Tears Naturale) 2 drop EA EYE PRN PRN PRN Reason: Dry Eyes Diphenhydramine HCl (Benadryl) 25 mg IVP Q6H PRN PRN Reason: Itching & Insomnia Diphenhydramine HCl (Benadryl) 25 mg PO Q6H PRN PRN Reason: Itching & Insomnia Last Admin: 05/07/18 20:09 Dose: 25 mg Enoxaparin Sodium (Lovenox) 40 mg SC 0900 ROSMERY Last Admin: 05/08/18 08:36 Dose: 40 mg Hydralazine HCl (Apresoline) 10 mg SLOW IVP Q4H PRN PRN Reason: SBP Greater Than 170 Labetalol HCl (Normodyne) 20 mg SLOW IVP Q4H PRN PRN Reason: SBP Greater Than 170 Mineral Oil/White Petrolatum (Eucerin Cream) 0 gm TOP BIDPRN PRN PRN Reason: Dry Skin Last Admin: 05/06/18 12:09 Dose: 1 applic Mometasone Furoate/Formoterol Fumar (Dulera 100 Mcg/5 Mcg Inhaler) 1 puff INH BID-RT [facility] Last Admin: 05/08/18 08:00 Dose: 1 puff Nitrofurantoin Macrocrystals (Macrobid) 100 mg PO BID [facility] Last Admin: 05/08/18 08:37 Dose: 100 mg Ondansetron HCl (Zofran) 4 mg IVP Q6H PRN PRN Reason: Nausea/Vomiting Last Admin: 05/06/18 20:06 Dose: 4 mg Ondansetron HCl (Zofran Odt) 8 mg PO Q8H PRN PRN Reason: Nausea Pantoprazole Sodium (Protonix) 40 mg PO DAILY [facility] Last Admin: 05/08/18 08:37 Dose: 40 mg Sodium Chloride ([place] Nasal [place] 0.65%) 0 ml EA NARE QIDPRN PRN PRN Reason: Nasal Congestion Throat Lozenges (Cepastat Lozenges) 1 rambo PO Q2H PRN PRN Reason: Sore Throat Last Admin: 05/07/18 15:21 Dose: 1 rambo Tramadol HCl (Ultram) 50 mg PO Q6H PRN PRN Reason: Moderate Pain (4-6) Last Admin: 05/08/18 03:48 Dose: 50 mg
--- NOTE | 2018-05-08 11:27 | PRG ---
DATE OF SERVICE: 05/08/2018 SUBJECTIVE: Ms. Bro is a 47-year-old woman who I have been following to exclud e acute small-bowel obstruction. The patient is tolerating oral intake at the moment. She is passin g liquid stool and gas through the ileostomy. She did, however, report some epigastric abdominal tristen n earlier today. Currently, has no nausea. She has remained hemodynamically stable and afebrile. OBJECTIVE: VITAL SIGNS: Include blood pressure 151/85, pulse 67, respiratory rate of 16, temperature 97.9 degre es Fahrenheit, oxygen saturation 98% on room air. ABDOMEN: Soft, nondistended. She has [id number] epigastric tenderness to palpation. There is no Cooney's sign present. Ileostomy is viable and productive of liquid stool and gas. IMPRESSION: 1. Resolved acute small-bowel obstruction. 2. Epigastric abdominal pain, likely secondary to gastroesophageal reflux disease versus biliary dys function. I agree with abdominal ultrasound to evaluate the gallbladder. There is no acute surgical indication for this patient at this time; however, we will review the abdominal ultrasound once these have been performed and make further recommendations as necessary.
[2018-05-08 16:17] LABS: HIV 1 Antibody Multi-Spot Positive (Negative); HIV 2 Antibody Multi-Spot Negative (Negative); HIV Multi-spot Interp HIV-1 Positive (.)
--- NOTE | 2018-05-08 18:41 | ULT ---
RIGHT UPPER QUADRANT ABDOMINAL ULTRASOUND: 05/08/18 COMPARISON: None. HISTORY: Abdominal pain. TECHNIQUE: Multiplanar tipton scale and color doppler images were obtained in a right upper quadrant abdominal ult rasound. FINDINGS: The liver is normal in echogenicity without focal lesions or intrahepatic ductal dilatation. The gall bladder contains multiple shadowing stones without gallbladder wall thickening or pericholecystic flu id. The common bile duct is normal measuring 4 mm. The pancreas cannot be seen secondary to bowel gas. There is a hyperechoic region in the renal cortex which may represent an area of scarring. There is no evidence of hydronephrosis or calculus in the r ight kidney which measures 9.5 cm in length. IMPRESSION: Cholelithiasis. POS: [employer]
[2018-05-09] MEDS: Mometasone/Formoterol 120 PUFF INHALER INH SCH ×2 (08:15→18:51)
--- NOTE | 2018-05-09 08:34 | PRG ---
DATE OF SERVICE: 05/08/2018 SUBJECTIVE: Ms. Bro has no further abdominal pain. She had an ultrasound of her abdomen today. She has cholelithiasis, normal 4-mm common bile duct. She reports that her pain when she initially presented was burning and band- like across the periumbilical area and up around the top of her ileostomy that is in the right lower quadrant. Here, she has had a normal EGD , Gastrografin upper GI with poor drainage from the stomach. She also had an ileoscopy and a scope of her Brisa's pouch. All were normal except for a moderate amount of inflammation in Brisa's pouch. At present, she is without complaints. She denies having any episodes of pain like this in the past. PRESENT MEDICATIONS: Tylenol, Ventolin, Benadryl, Lovenox, Apresoline, Normodyne, Dulera, Macrobid, Protonix, Ultram p.r.n. PHYSICAL EXAMINATION: VITAL SIGNS: Temperature is 97, pulse 68, blood pressure 146/90. LUNGS: Clear. HEART: Regular rate and rhythm. ABDOMEN: Soft, nontender. Ostomy is not herniated, not tender. EXTREMITIES: No edema. LABORATORY DATA: None today. HIV test was positive. Viral load is pending. ASSESSMENT: 1. Status post colectomy for severe ulcerative colitis. 2. History of human immunodeficiency virus and not presently on treatment. 3. Family history, primary sclerosing cholangitis and ulcerative colitis in a sister who with a malignancy of the liver and colon. This patient does not show any signs of primary sclerosing cholangitis. 4. Mild proctitis, some of this may be diversion, some may be related to her colitis in the remnant pouch. RECOMMENDATIONS: 1. I have talked with her about the risks of developing malignancy in the remnant of rectal pouch. She states that Dr. King, a colorectal surgeon in [place], told she was not a candidate for a ileal pouch anal anastomosis few years ago because of the short nature of the rectal stump. If this is true in the case, probably next best thing would be for her to just have a full APR removal of the rectal stump, so that decreases risks of malignancy. Alternatively, if she is not able to do this or does not want to do this, the next step would be just place her on Canasa suppositories. 2. With regard to her ultrasound showing gallstones, will defer decision on cholecystectomy through her general surgeons as I was not here and I did not see her on initial presentation. Although, I think it is a valid concern that possibly it could be bilary related as there are no signs of active inflammatory bowel disease this time and apparently there are no signs of bowel obstruction on her initial presentation images. ANSHUL
[2018-05-09] MEDS: traMADol HCl 50 MG TAB PO PRN ×2 (09:09→20:29)
[2018-05-09] MEDS: Nitrofurantoin Monohyd/M-Cryst 100 MG CAP PO SCH ×2 (09:09→20:36)
[2018-05-09] MEDS: Enoxaparin Sodium 40 MG/0.4 ML SYRINGE SC SCH (09:09)
--- NOTE | 2018-05-09 10:18 | PDOC.PN ---
- Subjective Encounter Start Date: 05/09/18 Encounter Start Time: 08:10 Patient seen and examined. No new complaints. No overnight events - Objective Resuscitation Status: Resuscitation Status FULL:Full Resuscitation MAR Reviewed: Yes Vital Signs & Weight: Vital Signs (12 hours) Temp Pulse Resp BP Pulse Ox 05/09/18 08:15 74 20 97 05/09/18 07:30 98 F 64 20 139/85 100 05/09/18 04:25 97.8 F 60 18 133/83 97 05/09/18 00:35 97.9 F 75 18 124/75 98 Weight Weight 158 lb 11.725 oz I&O: 05/08/18 05/09/18 05/10/18 06:59 06:59 06:59 Intake Total 1850 240 Output Total 100 50 Balance 1750 190 Result Diagrams: 05/06/18 04:40 05/06/18 04:40 Radiology Reviewed by me: Yes (us abdomen noted) Phys Exam - Physical Examination Constitutional: NAD HEENT: PERRLA, moist MMs, sclera anicteric Neck: no JVD, supple Respiratory: no wheezing, no rales, no rhonchi Cardiovascular: RRR, no significant murmur, no rub Gastrointestinal: soft, non-tender, no distention, positive bowel sounds ileostomy+ Musculoskeletal: no edema, pulses present Neurological: non-focal, normal sensation, moves all 4 limbs Psychiatric: normal affect, A&O x 3 Skin: no rash, normal turgor Dx/Plan (1) SBO (small bowel obstruction) Code(s): K56.609 - UNSP INTESTNL OBST, UNSP TO PARTIAL VERSUS COMPLETE OBST Status: Resolved (2) Asymptomatic bacteriuria Code(s): R82.71 - BACTERIURIA Status: Acute (3) Anemia, normocytic normochromic Code(s): D64.9 - ANEMIA, UNSPECIFIED Status: Chronic (4) Asthma Code(s): J45.909 - UNSPECIFIED ASTHMA, UNCOMPLICATED Status: Chronic (5) H/O total colectomy Code(s): Z90.49 - ACQUIRED ABSENCE OF OTHER SPECIFIED PARTS OF DIGESTIVE TRACT Status: Chronic (6) H/O ulcerative colitis Code(s): Z87.19 - PERSONAL HISTORY OF OTHER DISEASES OF THE DIGESTIVE SYSTEM Status: Chronic (7) Ileostomy status Code(s): Z93.2 - ILEOSTOMY STATUS Status: Chronic (8) Proctitis Code(s): K62.89 - OTHER SPECIFIED DISEASES OF ANUS AND RECTUM Status: Acute (9) HIV (human immunodeficiency virus infection) Status: Acute (10) Cholelithiases Code(s): K80.20 - CALCULUS OF GALLBLADDER W/O CHOLECYSTITIS W/O OBSTRUCTION Status: Chronic - Plan cont current plan of care, continue antibiotics * medication reviewed as below * symptomatic treatment * see discharge anamika. Review of Systems - Review of Systems ENT: negative: Ear Pain, Ear Discharge, Nose Pain, Nose Discharge, Nose Congestion, Mouth Pain, Mouth Swelling, Throat Pain, Throat Swelling, Other Respiratory: negative: Cough, Dry, Shortness of Breath, Hemoptysis, SOB with Excertion, Pleuritic Pain, Sputum, Wheezing Cardiovascular: negative: chest pain, palpitations, orthopnea, paroxysmal nocturnal dyspnea, edema, light headedness, other Gastrointestinal: negative: Nausea, Vomiting, Abdominal Pain, Diarrhea, Constipation, Melena, Hematochezia, Other Genitourinary: negative: Dysuria, Frequency, Incontinence, Hematuria, Retention , Other Musculoskeletal: negative: Neck Pain, Shoulder Pain, Arm Pain, Back Pain, Hand Pain, Leg Pain, Foot Pain, Other Skin: negative: Rash, Lesions, Luis, Bruising, Other - Medications/Allergies Allergies/Adverse Reactions: Allergies Allergy/AdvReac Type Severity Reaction Status Date / Time adhesive tape Allergy Verified 05/05/18 15:07 iodine Allergy Verified 05/05/18 15:07 Sulfa (Sulfonamide Allergy Verified 05/05/18 15:07 Antibiotics) Medications: Current Medications Acetaminophen (Tylenol) 650 mg LA Q4H PRN PRN Reason: Headache/Fever/Mild Pain (1-3) Albuterol Sulfate (Ventolin) 2.5 mg NEB Q4QC-[id number] PRN PRN Reason: Wheezing Albuterol Sulfate (Ventolin) 7.5 mg NEB Q6H PRN PRN Reason: SOB &/or Wheezing Artificial Tears (Tears Naturale) 2 drop EA EYE PRN PRN PRN Reason: Dry Eyes Diphenhydramine HCl (Benadryl) 25 mg IVP Q6H PRN PRN Reason: Itching & Insomnia Diphenhydramine HCl (Benadryl) 25 mg PO Q6H PRN PRN Reason: Itching & Insomnia Last Admin: 05/07/18 20:09 Dose: 25 mg Enoxaparin Sodium (Lovenox) 40 mg SC 0900 COUNT INCLUDES THE [facility] Last Admin: 05/09/18 09:09 Dose: 40 mg Hydralazine HCl (Apresoline) 10 mg SLOW IVP Q4H PRN PRN Reason: SBP Greater Than 170 Labetalol HCl (Normodyne) 20 mg SLOW IVP Q4H PRN PRN Reason: SBP Greater Than 170 Mineral Oil/White Petrolatum (Eucerin Cream) 0 gm TOP BIDPRN PRN PRN Reason: Dry Skin Last Admin: 05/06/18 12:09 Dose: 1 applic Mometasone Furoate/Formoterol Fumar (Dulera 100 Mcg/5 Mcg Inhaler) 1 puff INH BID-RT COUNT INCLUDES THE [facility] Last Admin: 05/09/18 08:15 Dose: 1 puff Nitrofurantoin Macrocrystals (Macrobid) 100 mg PO BID COUNT INCLUDES THE [facility] Last Admin: 05/09/18 09:09 Dose: 100 mg Ondansetron HCl (Zofran) 4 mg IVP Q6H PRN PRN Reason: Nausea/Vomiting Last Admin: 05/06/18 20:06 Dose: 4 mg Ondansetron HCl (Zofran Odt) 8 mg PO Q8H PRN PRN Reason: Nausea Pantoprazole Sodium (Protonix) 40 mg PO DAILY COUNT INCLUDES THE [facility] Last Admin: 05/09/18 09:09 Dose: 40 mg Sodium Chloride ([place] Nasal [place] 0.65%) 0 ml EA NARE QIDPRN PRN PRN Reason: Nasal Congestion Throat Lozenges (Cepastat Lozenges) 1 rambo PO Q2H PRN PRN Reason: Sore Throat Last Admin: 05/07/18 15:21 Dose: 1 rambo Tramadol HCl (Ultram) 50 mg PO Q6H PRN PRN Reason: Moderate Pain (4-6) Last Admin: 05/09/18 09:09 Dose: 50 mg
--- NOTE | 2018-05-09 15:25 | RAD ---
PORTABLE CHEST 1 VIEW: DATE: 05/09/2018. TIME: 1:01 p.m. HISTORY: Blood in the sputum. FINDINGS: The heart size is normal. The lungs are expanded without focal areas of consolidation, pneumothorax, or pleural effusions. IMPRESSION: No radiographic evidence of acute cardiopulmonary process. POS: [facility]
--- NOTE | 2018-05-09 16:13 | RAD ---
PA AND LATERAL CHEST: History: Blood in the sputum. FINDINGS/IMPRESSION: The heart is normal. There is question of a tiny left pleural effusion with adjacent infiltrate/atele ctatic change. There is mild scoliosis of the spine. IVC filter is present. POS: [facility]
--- NOTE | 2018-05-09 17:04 | PRG ---
DATE OF SERVICE: 05/09/2018 SUBJECTIVE: Ms. Bro is a 47-year-old woman who has a history of HIV, admitted with abdominal pa in. Initially was asked to see the patient to exclude the small-bowel obstruction, which has been ma naged conservatively. The patient is currently tolerating diet; however, she continues to have inter mittent epigastric abdominal pain. Abdominal ultrasound yesterday was obtained which revealed multip le intraluminal gallstones with gallbladder wall thickening, though no pericholecystic fluid present. Common bile duct size is 4 mm in diameter and appropriate for the patient's age. OBJECTIVE: VITAL SIGNS: Today includes blood pressure 124/77, pulse is 65, respiratory rate is 14, temperature 97.8 degrees Fahrenheit, oxygen saturation 96% on room air. HEENT: Reveals normocephalic and atraumatic. Pupils are equal, round, reactive to light and accommo dation. HEART: Reveals regular rate and rhythm, no murmurs or gallops auscultated. CHEST: Clear to auscultation bilaterally. Breathing is regular and unlabored. ABDOMEN: Soft with epigastric tenderness to palpation. Liver and spleen are nonpalpable below martinez l margin. NEUROLOGIC: Reveals no focal deficits present. IMPRESSION: 1. Acute cholecystitis with cholelithiasis. 2. History of human immunodeficiency virus. PLAN: Laparoscopic cholecystectomy. Above findings and plan have been discussed with the patient. I informed her of the risk and benefits of the proposed surgery to include, but not limited to bleedi ng, infection, injury to bile duct or surrounding structures. This information was given to the [place] ent in the presence of her nurse. She indicates understanding of the information given. I have answ ered her questions. The patient has given consent for this surgical intervention.
[2018-05-09 18:11] LABS: LOG10 HIV-1 RNA 2.431 (.)
[2018-05-09] MEDS: Mesalamine 1000 MG Suppository PR SCH (20:30)
--- NOTE | 2018-05-09 22:33 | PRG ---
DATE OF SERVICE: 05/09/2018 SUBJECTIVE: Ms. Bro has had a little bit of nausea today. Her ultrasound showed gallstones and Dr. Bah is going to take out her gallbladder tomorrow. She does note that she has got mucus and b lood from the rectum pretty frequently suppositories here if possible. OBJECTIVE: VITAL SIGNS: Temperature is 97, pulse 65, blood pressure 124/74. LUNGS: Clear. ABDOMEN: Nontender. LABORATORY STUDIES: None today. ASSESSMENT: 1. History of ulcerative colitis, status post subtotal colectomy with Brisa's pouch with active i nflammation. Biopsies showed no signs of dysplasia or infections. 2. Symptomatic cholelithiasis is likely what caused the pain that brought her to the emergency room. 3. Human immunodeficiency virus positive voiding viral load has been known for some time. She has n ot had opportunistic infections in the past and may be that she is immune tolerant. RECOMMENDATIONS: 1. Consider ID evaluation: 2. Agree with cholecystectomy. 3. We will start Canasa suppositories. We will follow from a distance further assistance in c are, please do not hesitate had contact me. I can see her back in the office 4-6 weeks after dischar ge.
[2018-05-10] MEDS ORDERED: Famotidine/PF 20 mg/2ml Vial ONE (06:41)
[2018-05-10] MEDS ORDERED: Fentanyl 100 MCG/2 ML VIAL ONE ×3 (06:41→11:23)
[2018-05-10] MEDS: Mometasone/Formoterol 120 PUFF INHALER INH SCH ×2 (07:15→19:38)
[2018-05-10] MEDS ORDERED: Bupivacaine/Epinephrine 0.25% 30 ML VIAL ONE (07:21)
[2018-05-10] MEDS ORDERED: CEFAZOLIN 2 GM/50 ML BAG ONE (08:05)
[2018-05-10] MEDS ORDERED: HYDROmorphone 2 MG/ML VIAL ONE ×2 (09:08→11:27)
--- NOTE | 2018-05-10 09:33 | PDOC.PN ---
- Subjective Encounter Start Date: 05/10/18 Encounter Start Time: 08:20 Patient seen and examined. No new complaints. No overnight events - Objective Resuscitation Status: Resuscitation Status FULL:Full Resuscitation MAR Reviewed: Yes Vital Signs & Weight: Vital Signs (12 hours) Temp Pulse Resp BP Pulse Ox 05/10/18 04:36 97.7 F 66 18 115/75 98 05/10/18 00:21 97.5 F L 71 18 122/78 97 Weight Weight 158 lb 11.725 oz I&O: 05/09/18 05/10/18 05/11/18 06:59 06:59 06:59 Intake Total 240 2250 Output Total 50 Balance 190 2250 Result Diagrams: 05/06/18 04:40 05/06/18 04:40 Phys Exam - Physical Examination Constitutional: NAD HEENT: PERRLA, moist MMs, sclera anicteric Neck: no JVD, supple Respiratory: no wheezing, no rales, no rhonchi Cardiovascular: RRR, no significant murmur, no rub Gastrointestinal: soft, non-tender, no distention, positive bowel sounds iliostomy+ Musculoskeletal: no edema, pulses present Neurological: non-focal, normal sensation, moves all 4 limbs Psychiatric: normal affect, A&O x 3 Skin: no rash, normal turgor Dx/Plan (1) SBO (small bowel obstruction) Code(s): K56.609 - UNSP INTESTNL OBST, UNSP TO PARTIAL VERSUS COMPLETE OBST Status: Resolved (2) Asymptomatic bacteriuria Code(s): R82.71 - BACTERIURIA Status: Acute (3) Anemia, normocytic normochromic Code(s): D64.9 - ANEMIA, UNSPECIFIED Status: Chronic (4) Asthma Code(s): J45.909 - UNSPECIFIED ASTHMA, UNCOMPLICATED Status: Chronic (5) H/O total colectomy Code(s): Z90.49 - ACQUIRED ABSENCE OF OTHER SPECIFIED PARTS OF DIGESTIVE TRACT Status: Chronic (6) H/O ulcerative colitis Code(s): Z87.19 - PERSONAL HISTORY OF OTHER DISEASES OF THE DIGESTIVE SYSTEM Status: Chronic (7) Ileostomy status Code(s): Z93.2 - ILEOSTOMY STATUS Status: Chronic (8) Proctitis Code(s): K62.89 - OTHER SPECIFIED DISEASES OF ANUS AND RECTUM Status: Acute (9) HIV (human immunodeficiency virus infection) Status: Acute (10) Cholelithiases Code(s): K80.20 - CALCULUS OF GALLBLADDER W/O CHOLECYSTITIS W/O OBSTRUCTION Status: Chronic - Plan cont current plan of care * after lap selvin today, pt will be discharge to home if surgeon OK and pt is stable * medication reviewed as below * symptomatic treatment. Review of Systems - Review of Systems ENT: negative: Ear Pain, Ear Discharge, Nose Pain, Nose Discharge, Nose Congestion, Mouth Pain, Mouth Swelling, Throat Pain, Throat Swelling, Other Respiratory: negative: Cough, Dry, Shortness of Breath, Hemoptysis, SOB with Excertion, Pleuritic Pain, Sputum, Wheezing Cardiovascular: negative: chest pain, palpitations, orthopnea, paroxysmal nocturnal dyspnea, edema, light headedness, other Gastrointestinal: Abdominal Pain. negative: Nausea, Vomiting, Diarrhea, Constipation, Melena, Hematochezia, Other Genitourinary: negative: Dysuria, Frequency, Incontinence, Hematuria, Retention , Other Musculoskeletal: negative: Neck Pain, Shoulder Pain, Arm Pain, Back Pain, Hand Pain, Leg Pain, Foot Pain, Other - Medications/Allergies Allergies/Adverse Reactions: Allergies Allergy/AdvReac Type Severity Reaction Status Date / Time adhesive tape Allergy Verified 05/05/18 15:07 iodine Allergy Verified 05/05/18 15:07 Sulfa (Sulfonamide Allergy Verified 05/05/18 15:07 Antibiotics) Medications: Current Medications Acetaminophen (Tylenol) 650 mg NV Q4H PRN PRN Reason: Headache/Fever/Mild Pain (1-3) Albuterol Sulfate (Ventolin) 2.5 mg NEB [id number] PRN PRN Reason: Wheezing Albuterol Sulfate (Ventolin) 7.5 mg NEB Q6H PRN PRN Reason: SOB &/or Wheezing Artificial Tears (Tears Naturale) 2 drop EA EYE PRN PRN PRN Reason: Dry Eyes Diphenhydramine HCl (Benadryl) 25 mg IVP Q6H PRN PRN Reason: Itching & Insomnia Diphenhydramine HCl (Benadryl) 25 mg PO Q6H PRN PRN Reason: Itching & Insomnia Last Admin: 05/07/18 20:09 Dose: 25 mg Enoxaparin Sodium (Lovenox) 40 mg SC 0900 [facility] Last Admin: 05/09/18 09:09 Dose: 40 mg Hydralazine HCl (Apresoline) 10 mg SLOW IVP Q4H PRN PRN Reason: SBP Greater Than 170 Labetalol HCl (Normodyne) 20 mg SLOW IVP Q4H PRN PRN Reason: SBP Greater Than 170 Mesalamine (Canasa) 1,000 mg NV HS [facility] Last Admin: 05/09/18 20:30 Dose: 1,000 mg Mineral Oil/White Petrolatum (Eucerin Cream) 0 gm TOP BIDPRN PRN PRN Reason: Dry Skin Last Admin: 05/06/18 12:09 Dose: 1 applic Mometasone Furoate/Formoterol Fumar (Dulera 100 Mcg/5 Mcg Inhaler) 1 puff INH BID-RT [facility] Last Admin: 05/09/18 18:51 Dose: 1 puff Nitrofurantoin Macrocrystals (Macrobid) 100 mg PO BID [facility] Last Admin: 05/09/18 20:36 Dose: 100 mg Ondansetron HCl (Zofran) 4 mg IVP Q6H PRN PRN Reason: Nausea/Vomiting Last Admin: 05/06/18 20:06 Dose: 4 mg Ondansetron HCl (Zofran Odt) 8 mg PO Q8H PRN PRN Reason: Nausea Pantoprazole Sodium (Protonix) 40 mg PO DAILY [facility] Last Admin: 05/09/18 09:09 Dose: 40 mg Sodium Chloride ([place] Nasal [place] 0.65%) 0 ml EA NARE QIDPRN PRN PRN Reason: Nasal Congestion Throat Lozenges (Cepastat Lozenges) 1 rambo PO Q2H PRN PRN Reason: Sore Throat Last Admin: 05/07/18 15:21 Dose: 1 rambo Tramadol HCl (Ultram) 50 mg PO Q6H PRN PRN Reason: Moderate Pain (4-6) Last Admin: 05/09/18 20:29 Dose: 50 mg
[2018-05-10] MEDS ORDERED: Ondansetron HCl/PF 4 MG/2 ML Vial IVP PRN (09:42)
[2018-05-10] MEDS ORDERED: Promethazine HCl 25 MG/ML VIAL IM PRN (09:42)
[2018-05-10] MEDS ORDERED: HYDROmorphone 2 MG/ML VIAL SLOW IVP PRN (09:42)
[2018-05-10] MEDS ORDERED: Meperidine HCl/PF 25 MG/ML VIAL SLOW IVP PRN (09:42)
[2018-05-10] MEDS ORDERED: Ketorolac Tromethamine 30 MG/ML VIAL IVP PRN (09:42)
[2018-05-10] MEDS ORDERED: Promethazine HCl 25 MG/ML VIAL SLOW IVP PRN (09:42)
--- NOTE | 2018-05-10 10:50 | DIS ---
PRIMARY CARE PHYSICIAN: [facility] call admission. DATE OF ADMISSION: 05/05/2018 DATE OF DISCHARGE: 05/11/2018 DISCHARGE DISPOSITION: Home. PRIMARY DISCHARGE DIAGNOSES: 1. Small-bowel obstruction, resolved. 2. Epigastric abdominal pain, likely due to symptomatic cholelithiasis status post open cholecystectomy. 3. Proctitis. 4. Urinary tract infection. SECONDARY DISCHARGE DIAGNOSES: History of ulcerative colitis, history of subtotal colectomy, ileostomy status, history of human immunodeficiency virus infection, normocytic normochromic anemia, asthma. PRIMARY PROCEDURE/OPERATION: Open cholecystectomy. Upper endoscopy was performed by Dr. Sellers. Colonoscopy through ileoscope was performed by Dr. Sellers. RADIOLOGICAL INVESTIGATION: Small bowel x-ray showed resolution of small-bowel obstruction. Abdominal ultrasound showed cholelithiasis. Chest x-ray was unremarkable. SIGNIFICANT LABORATORY DATA: WBC 5.8, hemoglobin 11.9, platelet 230. Sodium 139, potassium 4.1, chloride 112, carbon dioxide 21, BUN 5, creatinine 0.85, glucose 135, calcium 9.0, lactic acid 0.9. LFT normal. CRP 0.73. HIV 1 positive. DISCHARGE MEDICATIONS: Ventolin nebulization q.6 hourly p.r.n., Zofran ODT 8 mg q.8 hourly p.r.n., Symbicort 1 puff inhalation b.i.d., Nexium 40 mg daily, Macrobid 100 mg p.o. b.i.d. CONTRAINDICATIONS: None. CODE STATUS: FULL CODE. INPATIENT CONSULTANTS: Dr. Sellers and Dr. Carver was following while in hospital. Dr. Bah was consulted for small-bowel obstruction. TEST RESULTS PENDING ON DISCHARGE: None. ALLERGIES: ADHESIVE TAPE, IODINE, SULFA DRUGS. DISCHARGE PLAN: Post hospital, the patient will follow up with Dr. Sellers, Dr. Carver and Dr. Bah as instructed. HOSPITAL COURSE: A 47-year-old female who presented to the hospital with epigastric and periumbilical abdominal pain. She was admitted by me on admission. Please see my HPI for further detail. She had a CT abdomen and pelvis which showed small-bowel obstruction. The patient subsequently had small bowel x-ray which showed resolution of small-bowel obstruction. Gastroenterology was consulted. Gastroenterology did upper and lower endoscopy and found with proctitis. Biopsy was obtained. Pathology report from duodenum , stomach showed chronic inactive gastritis without H. pylori infection. Rectal biopsy was negative for any dysplasia. For chronic proctitis GI recommended to start mesalamine suppository for proctitis. The patient continued to complain of epigastric abdominal pain and that is why we did ultrasound of the gallbladder which was positive for cholelithiasis. This patient also has HIV status which is not new. This patient was previously known as Mariana Fung and she has different medical record and at that time, patient was following with Dr. Carver os an outpatient basis. This patient is instructed to follow up with Dr. Granados for HIV treatment. She also underwent openlaparoscopic cholecystectomy. [facility]
[2018-05-10] MEDS ORDERED: Ondansetron PF 4 MG/2 ML Vial ONE ×2 (11:05→14:41)
--- NOTE | 2018-05-10 11:29 | OP ---
DATE OF OPERATION: 05/10/2018 PREOPERATIVE DIAGNOSES: 1. Acute cholecystitis with cholelithiasis. 2. History of human immunodeficiency virus. POSTOPERATIVE DIAGNOSES: 1. Acute cholecystitis with cholelithiasis. 2. History of human immunodeficiency virus. PROCEDURE PERFORMED: Laparoscopic converted to open cholecystectomy. SURGEON: Avery Bah D.O. ANESTHESIA: General endotracheal. ESTIMATED BLOOD LOSS: 50 mL. FLUIDS GIVEN: 1400 mL crystalloids. SPONGE AND INSTRUMENT COUNT: Certified as correct x2. COMPLICATIONS: None apparent. INDICATIONS FOR PROCEDURE: This is a 47-year-old woman with history of ulcerative c olitis, status post total colectomy and HIV. The patient presented with recurrent epigastric abdomin al pain. Initially she was treated conservatively suspicious of acute small-bowel obstruction. The pain fails to resolve and usually exacerbated by eating. Further workup at that time included an abd ominal ultrasound which revealed multiple intraluminal gallstones with thickened gallbladder wall sug gestive of acute on chronic cholecystitis. The patient was brought to the operating room for cholecy stectomy. Findings are consistent with gallbladder in the usual anatomic location and extensive dens e intraabdominal adhesions which made it impossible to proceed with laparoscopic cholecystectomy. DESCRIPTION OF PROCEDURE: Informed consent obtained from the patient who was brought to operating ro om and placed in supine position. Following general anesthesia, the abdomen is sterilely prepped and draped in usual fashion. The skin below the umbilicus was infiltrated with 0.25% Marcaine with epin ephrine. A small curvilinear infraumbilical incision is made using an 11 scalpel. Umbilical stalk g rasped with Azeem and elevated. A Veress needle inserted through the incision and placed in the per itoneal cavity through which the abdomen was insufflated with 2 liters of CO2 gas. Intraabdominal pr essure was noted at 4 mmHg. Following abdominal insufflation, Veress needle was removed and attempte d to introduce a 5 mm trocar using the Visiport under laparoscopy without success as there was a sign ificant amount of dense intraabdominal adhesions there. We then decided to place the Veress needle i n the left upper quadrant after a stab incision is made here. Veress needle was inserted and again w e attempted to insufflate the abdomen achieving high pressures immediately. The decision was made th erefore to convert this to open a suspicion of dense intra-abdominal adhesions from the previous infl ammatory bowel disease. To achieve this, a Azeem incision was made in the usual fashion using #10 s calpel. Incision was carried through subcutaneous tissue with good hemostasis. Fascia was incised a long the line of the incision exposing the peritoneum beneath which was grasped x2 with hemostats. T he peritoneal cavity was sharply entered using Metzenbaum scissors. Care was taken to bluntly take d own omental adhesions as well as multiple loops of small bowel which were adherent to the liver. The fundus of the gallbladder was identified and grasped with ring forceps. The liver was freed from chino rrounding adherent tissues. Care was taken to avoid injuries to bowel. Bookwalter retractor was then put in place to gain exposu re. The gallbladder was taken down in a retrograde fashion using cautery. I then applied a second r ing forceps at the Emery's pouch which was retracted laterally. Anterior coursing cystic artery wa s dissected from surrounding structures and divided between clips applying two clips proximally. The cystic artery was dissected free from surrounding structures and divided between clips, again in a s imilar fashion. The remainder of the gallbladder was removed from the liver bed with cautery. Gallb ladder fossa was woozy of blood and hemostasis was achieved using Arixtra and direct pressure. Gallb ladder passed off the operative field for onward transmission to pathology. Operative site was again inspected for good hemostasis. Finding no other pathology, exploration was terminated. All sponges and instruments were removed and accounted for. Peritoneum was approximated using running stitch of 2-0 Vicryl. Fascia is closed in layers using 0 Vicryl suture in an interrupted fashion alternated w ith a 2-0 PDS. Subcutaneous tissue was irrigated clear with saline solution perfected hemostasis usi ng thermocautery. Deep subcutaneous tissues approximated using interrupted sutures of 2-0 Vicryl. S kin incision was closed using running stitch of 4-0 Monocryl suture in subcuticular fashion. Dermabo nd was applied over incisional closure. The patient was brought to the recovery room in satisfactory condition.
[2018-05-10] MEDS: traMADol HCl 50 MG TAB PO PRN ×2 (12:54→20:55)
[2018-05-10] MEDS ORDERED: ePHEDrine/0.9% NaCl/PF SYRINGE 50 mg/10 ml ONE (14:41)
[2018-05-10] MEDS ORDERED: Ketorolac Tromethamine 30 MG/ML VIAL ONE (14:41)
[2018-05-10] MEDS ORDERED: PHENYLEPHRINE-NS 100 MCG/ML 10 ML SYRINGE ONE (14:41)
[2018-05-10] MEDS ORDERED: Succinylcholine Chloride 20 MG/ML 10 ml SYRINGE FS ONE (14:41)
[2018-05-10] MEDS ORDERED: Glycopyrrolate 0.2 MG/ML 5 ML SYRINGE ONE (14:41)
[2018-05-10] MEDS ORDERED: Dexamethasone 20 MG/5 ML VIAL ONE (14:41)
[2018-05-10] MEDS ORDERED: PROPOFOL 200 MG/20 ML VIAL ONE (14:41)
[2018-05-10] MEDS ORDERED: Metoclopramide HCl 10 MG/2 ML VIAL ONE (14:41)
[2018-05-10] MEDS: Nitrofurantoin Monohyd/M-Cryst 100 MG CAP PO SCH ×2 (14:48→20:56)
[2018-05-10] MEDS: Enoxaparin Sodium 40 MG/0.4 ML SYRINGE SC SCH ×2 (15:05→18:38)
[2018-05-10] MEDS: Acetaminophen 500 MG TAB PO SCH ×2 (15:05→20:55)
[2018-05-10] MEDS: Mesalamine 1000 MG Suppository PR SCH (20:55)
[2018-05-11] MEDS: Acetaminophen 500 MG TAB PO SCH ×3 (02:49→14:44)
[2018-05-11 05:42] LABS: ALT (SGPT) 46 U/L (8-55); AST (SGOT) 68 U/L (5-34); Albumin 3.7 g/dL (3.5-5.0); Alkaline Phosphatase 77 U/L (40-150); Anion Gap 11 mmol/L (10-20); BUN (Urea Nitrogen) 11 mg/dL (7.0-18.7); Bilirubin, Direct 0.3 mg/dL (0.1-0.3); Bilirubin, Total 0.7 mg/dL (0.2-1.2); Calc. Creatinine Clearance 85 mL/min (70-130); Calcium 9.5 mg/dL (7.8-10.44); Carbon Dioxide 27 mmol/L (22-29); Chloride 103 mmol/L (98-107); Estimated GFR-MDRD 78; Glucose 103 mg/dL (70-105); Magnesium 1.8 mg/dL (1.6-2.6); Phosphorus 4.2 mg/dL (2.3-4.7); Protein, Total 7.1 g/dL (6.0-8.3); Sodium 137 mmol/L (136-145)
[2018-05-11 05:47] LABS: #Lymphocytes 1.5 thou/uL (1.20-3.40); #Neutrophils 7.9 thou/uL (1.40-6.50); %Basophils 0.1 % (0.0-1.0); %Eosinophils 0.1 % (0.0-10.0); %Lymphocytes 14.8 % (21.0-51.0); %Monocytes 9.1 % (0.0-10.0); %Neutrophils 75.9 % (42.0-75.0); Hemoglobin 11.2 g/dL (12.0-16.0); Mean Corpuscular HGB CONC 32.9 g/dL (32.0-36.0); Mean Corpuscular Hemoglobin 29.9 pg (27.0-31.0); Mean Corpuscular Volume 90.9 fL (78.0-98.0); Mean Platelet Volume 8.3 fL (7.4-10.4); Platelet Count 261 thou/uL (130-400); RBC Distribution Width 11.6 % (11.5-14.5); Red Blood Cell (RBC) Count 3.74 mill/uL (4.20-5.40); White Blood Cell (WBC) Count 10.4 thou/uL (4.8-10.8)
[2018-05-11] MEDS: traMADol HCl 50 MG TAB PO PRN (06:14)
[2018-05-11] MEDS: Mometasone/Formoterol 120 PUFF INHALER INH SCH (07:17)
[2018-05-11] MEDS: Enoxaparin Sodium 40 MG/0.4 ML SYRINGE SC SCH (09:01)
[2018-05-11] MEDS: Nitrofurantoin Monohyd/M-Cryst 100 MG CAP PO SCH (09:01)
--- NOTE | 2018-05-11 11:03 | PDOC.PN ---
- Subjective Encounter Start Date: 05/11/18 Encounter Start Time: 09:15 Patient seen and examined. No new complaints. No overnight events - Objective Resuscitation Status: Resuscitation Status FULL:Full Resuscitation MAR Reviewed: Yes Vital Signs & Weight: Vital Signs (12 hours) Temp Pulse Resp BP Pulse Ox 05/11/18 07:35 98 F 81 16 160/91 H 97 05/11/18 04:32 98 F 79 18 158/88 H 97 Weight Weight 158 lb 11.725 oz I&O: 05/10/18 05/11/18 05/12/18 06:59 06:59 06:59 Intake Total 2250 500 Balance 2250 500 Result Diagrams: 05/11/18 04:41 05/11/18 04:41 Phys Exam - Physical Examination Constitutional: NAD HEENT: PERRLA, moist MMs, sclera anicteric Neck: no JVD, supple Respiratory: no wheezing, no rales, no rhonchi Cardiovascular: RRR, no significant murmur, no rub Gastrointestinal: soft, non-tender, no distention, positive bowel sounds surgical site clean, ileostomy+ Musculoskeletal: no edema, pulses present Neurological: non-focal, normal sensation, moves all 4 limbs Lymphatic: no nodes Psychiatric: normal affect, A&O x 3 Skin: no rash, normal turgor Dx/Plan (1) SBO (small bowel obstruction) Code(s): K56.609 - UNSP INTESTNL OBST, UNSP TO PARTIAL VERSUS COMPLETE OBST Status: Resolved (2) Asymptomatic bacteriuria Code(s): R82.71 - BACTERIURIA Status: Acute (3) Anemia, normocytic normochromic Code(s): D64.9 - ANEMIA, UNSPECIFIED Status: Chronic (4) Asthma Code(s): J45.909 - UNSPECIFIED ASTHMA, UNCOMPLICATED Status: Chronic (5) H/O total colectomy Code(s): Z90.49 - ACQUIRED ABSENCE OF OTHER SPECIFIED PARTS OF DIGESTIVE TRACT Status: Chronic (6) H/O ulcerative colitis Code(s): Z87.19 - PERSONAL HISTORY OF OTHER DISEASES OF THE DIGESTIVE SYSTEM Status: Chronic (7) Ileostomy status Code(s): Z93.2 - ILEOSTOMY STATUS Status: Chronic (8) Proctitis Code(s): K62.89 - OTHER SPECIFIED DISEASES OF ANUS AND RECTUM Status: Acute (9) HIV (human immunodeficiency virus infection) Status: Acute (10) Cholelithiases Code(s): K80.20 - CALCULUS OF GALLBLADDER W/O CHOLECYSTITIS W/O OBSTRUCTION Status: Chronic (11) S/P cholecystectomy Code(s): Z90.49 - ACQUIRED ABSENCE OF OTHER SPECIFIED PARTS OF DIGESTIVE TRACT Status: Acute - Plan cont current plan of care * medication reviewed as below * symptomatic treatment * ok to discharge if surgeon OK * stable medically. Review of Systems - Review of Systems Eyes: negative: Pain, Vision Change, Conjunctivae Inflammation, Eyelid Inflammation, Redness, Other ENT: negative: Ear Pain, Ear Discharge, Nose Pain, Nose Discharge, Nose Congestion, Mouth Pain, Mouth Swelling, Throat Pain, Throat Swelling, Other Respiratory: negative: Cough, Dry, Shortness of Breath, Hemoptysis, SOB with Excertion, Pleuritic Pain, Sputum, Wheezing Cardiovascular: negative: chest pain, palpitations, orthopnea, paroxysmal nocturnal dyspnea, edema, light headedness, other Gastrointestinal: negative: Nausea, Vomiting, Abdominal Pain, Diarrhea, Constipation, Melena, Hematochezia, Other Genitourinary: negative: Dysuria, Frequency, Incontinence, Hematuria, Retention , Other Musculoskeletal: negative: Neck Pain, Shoulder Pain, Arm Pain, Back Pain, Hand Pain, Leg Pain, Foot Pain, Other Skin: negative: Rash, Lesions, Luis, Bruising, Other - Medications/Allergies Allergies/Adverse Reactions: Allergies Allergy/AdvReac Type Severity Reaction Status Date / Time adhesive tape Allergy Verified 05/05/18 15:07 iodine Allergy Verified 05/05/18 15:07 Sulfa (Sulfonamide Allergy Verified 05/05/18 15:07 Antibiotics) Medications: Current Medications Acetaminophen (Tylenol) 1,000 mg PO Q6H ROSMERY Last Admin: 05/11/18 09:00 Dose: 1,000 mg Albuterol Sulfate (Ventolin) 2.5 mg NEB [id number] PRN PRN Reason: Wheezing Albuterol Sulfate (Ventolin) 7.5 mg NEB Q6H PRN PRN Reason: SOB &/or Wheezing Artificial Tears (Tears Naturale) 2 drop EA EYE PRN PRN PRN Reason: Dry Eyes Diphenhydramine HCl (Benadryl) 25 mg IVP Q6H PRN PRN Reason: Itching & Insomnia Diphenhydramine HCl (Benadryl) 25 mg PO Q6H PRN PRN Reason: Itching & Insomnia Last Admin: 05/07/18 20:09 Dose: 25 mg Enoxaparin Sodium (Lovenox) 40 mg SC 0900 [facility] Last Admin: 05/11/18 09:01 Dose: 40 mg Hydralazine HCl (Apresoline) 10 mg SLOW IVP Q4H PRN PRN Reason: SBP Greater Than 170 Labetalol HCl (Normodyne) 20 mg SLOW IVP Q4H PRN PRN Reason: SBP Greater Than 170 Mesalamine (Canasa) 1,000 mg OH HS [facility] Last Admin: 05/10/18 20:55 Dose: 1,000 mg Mineral Oil/White Petrolatum (Eucerin Cream) 0 gm TOP BIDPRN PRN PRN Reason: Dry Skin Last Admin: 05/06/18 12:09 Dose: 1 applic Mometasone Furoate/Formoterol Fumar (Dulera 100 Mcg/5 Mcg Inhaler) 1 puff INH BID-RT [facility] Last Admin: 05/11/18 07:17 Dose: 1 puff Nitrofurantoin Macrocrystals (Macrobid) 100 mg PO BID [facility] Last Admin: 05/11/18 09:01 Dose: 100 mg Ondansetron HCl (Zofran) 4 mg IVP Q6H PRN PRN Reason: Nausea/Vomiting Last Admin: 05/06/18 20:06 Dose: 4 mg Ondansetron HCl (Zofran Odt) 8 mg PO Q8H PRN PRN Reason: Nausea Pantoprazole Sodium (Protonix) 40 mg PO DAILY [facility] Last Admin: 05/11/18 09:01 Dose: 40 mg Sodium Chloride ([place] Nasal [place] 0.65%) 0 ml EA NARE QIDPRN PRN PRN Reason: Nasal Congestion Throat Lozenges (Cepastat Lozenges) 1 rambo PO Q2H PRN PRN Reason: Sore Throat Last Admin: 05/07/18 15:21 Dose: 1 rambo Tramadol HCl (Ultram) 50 mg PO Q6H PRN PRN Reason: Moderate Pain (4-6) Last Admin: 05/10/18 12:54 Dose: 50 mg Tramadol HCl (Ultram) 100 mg PO Q6H PRN PRN Reason: Severe Pain (7-10) Last Admin: 05/11/18 06:14 Dose: 100 mg
--- NOTE | 2018-05-11 12:41 | PRG ---
DATE OF SERVICE: 05/11/2018 PRESENT ILLNESS: Ms. Bro is a 47-year-old woman with history of HIV. Postop d ay #1, status post open cholecystectomy. The patient reports adequate pain control today. Urinary output has been appropriate. PHYSICAL EXAMINATION: VITAL SIGNS: Today includes blood pressure 158/88, pulse 79, respiratory rate is 18, temperature 98 degrees Fahrenheit, oxygen saturation 97% on room air. ABDOMEN: Soft with incisional tenderness to palpation. Azeem incision is intact, clean, and dry. LABORATORY DATA: Today includes CBC with 10,400 white blood cells, hemoglobin and hematocrit are sta ble at 11.2 and 34.0 respectively. Platelet count is 261,000. Metabolic profile: Sodium 137, potas sium is 4.0, chloride is 103, bicarbonate is 27, BUN 11, creatinine 0.93, glucose 103. Phosphorus 4. 2, magnesium is 1.8, total bilirubin 0.7, AST and ALT 68 and 46 respectively. IMPRESSION: Postop day #1 status post open cholecystectomy. The patient is hemodynamically stable. PLAN: Increase activity and advance diet as the patient tolerates. The above findings and plan discussed with the patient who indicates understanding of information giv en. Anticipate discharge in the next day so long as bowel function has returned.
--- NOTE | 2018-05-11 14:18 | ADD-DIS ---
ADDENDUM: Please see my discharge summary dictated on 05/10/2018. Patient was planned for discharge on that day, but patient had symptomatic cholelithiasis and she req uired a laparoscopic cholecystectomy, but that was converted to open cholecystectomy. After that, alonso dupree was observed 24 hours in hospital. Her surgical site is clean and healthy. She is ambulatory, tolerating p.o. well. As long as if surgeons are okay, then this patient would be discharged home l ater on today and she will follow up with the general surgeon as well as her GI and Dr. Granados as inst ructed. Patient is seen and examined at bedside today. Please see my progress note from today for f urther detail.
[2018-05-11] MEDS: Ondansetron PF 4 MG/2 ML Vial IVP PRN (14:42)
[2018-05-11 16:03] VITALS: BP 157/97; TEMP 98.4
== END 2018-05-11 18:05 | disposition home or self-care (01) | DRG 357 ==
LOC: ERS 10:54 → SURG A 14:03 → SJJU 05-07 11:41 → SURG A 05-07 11:43
PROVIDERS: ADMIT Internal Medicine; ATTEND Internal Medicine
PROC: 0DB68ZX Excision of Stomach, Via Natural or Artificial Opening Endoscopic, Diagnostic (ICD-10-PCS; principal; 2018-05-06)
PROC: 0DB98ZX Excision of Duodenum, Via Natural or Artificial Opening Endoscopic, Diagnostic (ICD-10-PCS; 2018-05-06)
PROC: 0DBP8ZX Excision of Rectum, Via Natural or Artificial Opening Endoscopic, Diagnostic (ICD-10-PCS; 2018-05-06)
PROC: 0FT40ZZ Resection of Gallbladder, Open Approach (ICD-10-PCS; 2018-05-10)
PROC: 0FJ44ZZ Inspection of Gallbladder, Percutaneous Endoscopic Approach (ICD-10-PCS; 2018-05-10)
DX: K56.609 Unspecified intestinal obstruction, unspecified as to partial versus complete obstruction (principal); K80.00 Calculus of gallbladder with acute cholecystitis without obstruction; N39.0 Urinary tract infection, site not specified; K21.9 Gastro-esophageal reflux disease without esophagitis; J45.909 Unspecified asthma, uncomplicated; K62.89 Other specified diseases of anus and rectum; D64.9 Anemia, unspecified; K29.50 Unspecified chronic gastritis without bleeding; K43.5 Parastomal hernia without obstruction or gangrene; K66.0 Peritoneal adhesions (postprocedural) (postinfection); Z21 Asymptomatic human immunodeficiency virus [HIV] infection status; Z93.2 Ileostomy status; Z90.49 Acquired absence of other specified parts of digestive tract; Z86.73 Personal history of transient ischemic attack (TIA), and cerebral infarction without residual deficits; Z88.2 Allergy status to sulfonamides; Z91.041 Radiographic dye allergy status; Z87.19 Personal history of other diseases of the digestive system; Z79.899 Other long term (current) drug therapy
CPT/HCPCS: 36415; 71045; 71046; 74018; 74250; 76705; 80048; 80053; 80076; 83605; 83735; 84100; 85025; 86140; 86701; 86702; 87077; 87086; 87186; 87389; 87536; 88304; 88305; 88312; 90471; 90686; 94664; 96374; C9113; G0008; J0131; J0696; J1100; J1170; J1200; J1650; J1885; J2001; J2270; J2405; J2704; J2765; J2920; J3010; J7050; S0028

== ENCOUNTER 2018-11-28 20:09 | Emergency (ER) | payer MEDICARE, MEDICAID ==
[2018-11-28 21:32] LABS: Bilirubin Small (Negative); Blood, Urine Negative (Negative); Clarity CLOUDY (Clear); Glucose, Urine (Dipstick) Negative (Negative); Leukocyte Small (Negative); Nitrite Negative (Negative); Protein, Urine (Dipstick) 100 mg/dL (Neg-Trace); Urobilinogen 0.2 mg/dL (0.2-1.0); pH, Urine 5.5 (5.0-9.0)
[2018-11-28] MEDS ORDERED: Morphine 4 MG/ML VIAL ONE (21:35)
[2018-11-28 21:53] LABS: Bacteria/HPF 1+ HPF (None Seen); RBC/HPF 0-3 HPF (0-3)
[2018-11-28] MEDS ORDERED: diphenhydrAMINE 50 MG/ML VIAL ONE (22:01)
[2018-11-28] MEDS ORDERED: Famotidine/PF 20 mg/2ml Vial ONE (22:01)
[2018-11-28] MEDS ORDERED: methylPREDNISolone Sod Succ/PF 125 MG/2 ML VIAL ONE (22:01)
[2018-11-28 22:02] LABS: #Basophils 0.1 thou/uL (0.0-0.2); #Eosinphils 0.1 thou/uL (0.0-0.7); #Lymphocytes 2.8 thou/uL (1.20-3.40); #Neutrophils 8.4 thou/uL (1.40-6.50); %Basophils 0.8 % (0.0-1.0); %Eosinophils 0.8 % (0.0-10.0); %Lymphocytes 22.5 % (21.0-51.0); %Monocytes 7.9 % (0.0-10.0); Hemoglobin 10.2 g/dL (12.0-16.0); Mean Corpuscular HGB CONC 33.3 g/dL (32.0-36.0); Mean Corpuscular Volume 90.2 fL (78.0-98.0); Mean Platelet Volume 7.9 fL (7.4-10.4); Platelet Count 371 thou/uL (130-400); RBC Distribution Width 14.3 % (11.5-14.5); White Blood Cell (WBC) Count 12.3 thou/uL (4.8-10.8)
[2018-11-28 22:20] LABS: ALT (SGPT) 56 U/L (8-55); AST (SGOT) 47 U/L (5-34); Albumin 4.3 g/dL (3.5-5.0); Alkaline Phosphatase 532 U/L (40-150); Anion Gap 18 mmol/L (10-20); BUN (Urea Nitrogen) 14 mg/dL (7.0-18.7); Bilirubin, Total 0.8 mg/dL (0.2-1.2); CK (CPK) 59 U/L (29-168); Calc. Creatinine Clearance 0 mL/min (70-130); Calcium 9.7 mg/dL (7.8-10.44); Carbon Dioxide 18 mmol/L (22-29); Chloride 104 mmol/L (98-107); Estimated GFR-MDRD 76; Globulin 3.7 g/dL (2.4-3.5); Glucose 105 mg/dL (70-105); Potassium 4.6 mmol/L (3.5-5.1); Sodium 135 mmol/L (136-145)
--- NOTE | 2018-11-28 23:40 | CT ---
CT ABDOMEN AND PELVIS WITH IV CONTRAST: 11/28/18 HISTORY: Left abdominal wall abscess. Patient reports surgery to J pouch site two months ago. COMPARISON: None available. FINDINGS: There is linear bibasilar atelectasis versus scarring. Post cholecystectomy changes are seen. Inferior vena cava filter is noted in place with the tip at the level of the renal veins. The liver, spleen, pancreas, and bilateral adrenal glands demonstrate a normal CT appearance. The rig ht kidney is rotated. There is a small subcentimeter too small to characterize hypodense lesion mid p ortion of the right kidney. The kidneys otherwise have a normal CT appearance. There is mild prominence of the pancreatic duct which is of uncertain etiology. There is also mild pr ominence of the bile ducts which likely is related to reservoir effect from cholecystectomy changes. Urinary bladder has a normal CT appearance. There are postsurgical changes related to what appears to be a subtotal colectomy with probable small Emery's pouch. There are prominent curvilinear increased densities seen within the pelvis which is likely attributable to prior postsurgical change. There is evidence of hysterectomy. There is evidence of a right lower quadrant ostomy with loops of small bowel within the ostomy as wel l as mesenteric fat extending to this region. There is a prior ostomy site in the left abdomen which contains a lobulated fluid and gas collection located within the subcutaneous soft tissues. This areas measures approximately 4.9 cm x 3.2 cm. Ther e is adjacent inflammatory changes in the abdominal wall beneath this collection and in the adipose l rubia, and there is gas density seen just below the collection within the abdomen wall which appears t o be contiguous with a small air and fluid collection within the pelvis connected by a small tubular collection extending to this region. The very small collection within the central pelvis measures lynda roximately 0.9 cm craniocaudal x 5.1 cm transverse x 1.7 cm AP. There are inflammatory changes seen i n the pelvis with stranding seen in a presacral location which may be related to scarring. IMPRESSION: 1. Fluid and gas collection within the adipose layer left anterolateral lower quadrant which may be the site of prior ostomy. This does appear to be contiguous with a smaller collection within the central pelvis via a small tubular collection. Findings are likely related to abscess collection exte nding from the subcutaneous tissues into the lower pelvis. There are adjacent inflammatory changes in the soft tissues as well as in the pelvis. 2. Postsurgical changes of the abdomen and pelvis. 3. Above findings discussed with Dr. Manzo in the Emergency Department on 11/28/18 at 2312 hours . POS: [facility]
[2018-11-28] MEDS ORDERED: Piperacillin/Tazobactam 4.5 GM VIAL ONE (23:49)
== END 2018-11-29 00:39 | disposition home or self-care (01) ==
LOC: ERS 20:09
DX: L03.311 Cellulitis of abdominal wall (principal); I10 Essential (primary) hypertension; J45.909 Unspecified asthma, uncomplicated; K21.9 Gastro-esophageal reflux disease without esophagitis; Z86.73 Personal history of transient ischemic attack (TIA), and cerebral infarction without residual deficits
CPT/HCPCS: 74177; 80053; 81003; 81015; 82550; 83605; 85025; 96374; 96375; J1200; J2270; J2543; J2930; J3370; S0028